=== PATIENT | female | born 1955 | race Caucasian/White ===

== ENCOUNTER 2024-05-13 15:49 | Emergency (ER) | payer OTHER, MEDICARE, SELFPAY ==
--- NOTE | ~2024-05-13 | CT_ITS ---
CT abdomen pelvis w con Ordering provider: Milagros Ortega PA-C History: 69 years Female with . n/v/d, abd bloating . Comparison: None. Technique: CT abdomen and pelvis with IV and without oral contrast. Automated exposure control and it erative reconstruction technique were employed. The dose-length product was 284.08 mGy-cm. 100 mL Omn ipaque 350 was given IV. Findings: VISUALIZED LOWER CHEST: Nodule measuring 4 mm seen in the left lower lobe. 6 months follow-up CT is a dvised. UPPER ABDOMINAL ORGANS: Liver: Normal. Gallbladder: Normal. Spleen: Normal. Stomach/duodenum: Normal. Pancreas: Normal. Adrenals: Normal. Kidneys: Normal. PELVIC ORGANS: The bladder is underfilled. BOWEL AND MESENTERY: Colon: No evidence of diverticulitis.. Normal appendix. Small Bowel: Normal. No obstruction. Peritoneum/mesentery: No free air or free fluid. No mesenteric lymphadenopathy. RETROPERITONEUM: Mild atheromatous disease of the abdominal aorta. Prominent vessels are seen in the sides of the pelvis with prominent ovarian veins suggestive of pelvic congestion syndrome. No retrop eritoneal lymphadenopathy. MUSCULOSKELETAL: Superficial soft tissues: The superficial soft tissues are normal. Bones: Age appropriate degenerative changes of the spine. IMPRESSION: 1. Nodule in the left lung base measuring 4 mm. 6 months follow-up CT is advised. 2. 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 3. No evidence of appendicitis, diverticulitis or intestinal obstruction. Reviewed, dictated and finalized at location A. IMPRESSION: 1. Nodule in the left lung base measuring 4 mm. 6 months follow-up CT is advis ed. 2. Prominent markings in the sides of the pelvis suggestive of pelvic congesti on syndrome. 3. No evidence of appendicitis, diverticulitis or intestinal obstruction.
[2024-05-13 16:14] VITALS: BP 131/77; PULSE 60; RESP 18; TEMP 36.7; O2SAT 100
--- OUTSIDE RECORDS SUMMARY | 2024-05-13 17:38 | XMS_ITS | Encounter Summary ---
Author Organization [facility] Healthcare Address [address] [place] [id number] Care Team Providers Care Insurance Claims Representative Name Role Phone DALTON Olea Jr., Cesar Hahn Primary Care Provide r Reason for Visit * Reason Onset Date Comments Vomiting 05/13/2024 Encounter Details Date Type Department Care Team ([facility] st Contact Info) Description 05/13/2024 Nurse Triage [facility] Medical Group Primary Care [facility] [address] [phone] Cesar Olea Jr., PA [address] [place] [address] Social History Tobacco Use Types Packs/Day Years Used Date Smoking Tobacco: Never Smokeless Tobacco: Never Alcohol Use Standard Drinks/Week Comments Yes 0 (1 standard drink = 0.6 oz pur e alcohol) AUDIT-C Answer Date Recorded Q1: How often do you have a drink containing alc ohol? Never 04/27/2024 Q2: How many drinks containi ng alcohol do you have on a typical day when you are drinking? 1 or 2 04/27/2024 Frequency of Binge Drinking Not on file 04/05 PHQ-2 Answer Date Recorded PHQ-2 Total Score (If total score is 3 or more points, staff should administer the PHQ-9) 0 01/15/2024 Comments No Sex and Gender Information Value Date Recorded Sex Assigned at Not on file Legal Sex Female 7:42 PM LITERACY COORDINATOR Gender Identity Not on file Sexual Orientation Not on file documented as of this encounter Miscellaneous Notes * Telephone Encounter - Cesar Olea Jr., PA - 05/13/2024 3:41 PM CDT Provider note, noted. * Telephone Encounter - Aj Goldman LPN - 05/13/2024 3:17 PM CDT Please review. * Telephone Encounter - Janki Rubio RN - 05/13/2024 3:03 PM CDT Pt reports vomiting x almost 48 hours. Vomiting and diarrhea began Saturday evening about 2 hours after dinner. Vomiting and diarrhea lasted all throughout the night. Pt felt a little bit better yesterday. Vomiting (no diarrhea) returned today and she hasn't been able to keep fluid down. Pt reports feeling lightheaded. She is able to walk around. Denies fever. Advised pt to be seen in person somewhere with capability for IVF (ED or higher acuity UC). Pt's significant other plans to drive her to [facility] at this time. She agrees to call back with any questions or follow up. Routing to Cesar Olea Jr., PA clinical pool as MELITA. Reason for Disposition MODERATE vomiting (e.g., 3 - 5 times/day) and age > 60 years Protocols used: Jmbnyhna-Znhni-NH * Telephone Encounter - Janki Rubio RN - 05/13/2024 2:53 PM CDT Regarding: diarrhea, vomiting ----- Message from Adia Turcios sent at 05/13/2024 2:08 PM CDT ----- Symptom Based Call Chief Complaint(s): diarrhea, vomiting Duration: 24 hrs What type of symptom(s) is the patient experiencing? Non-Emergent. Is this a new or reoccurring symptom(s)? new What have you tried to help your symptom(s)? Ronan Gutierres Dayquil Why was appointment not scheduled? Appointment availability did not meet the patient's need. Additional Comments: none Does message need to be routed? Yes-Action Needed documented in this encounter Plan of Treatment Not on file documented as of this encounter Visit Diagnoses Not on filedocumented in this encounter Care Teams Insurance Claims Representative Relationship Specialty Start Date End Date Cesar Olea Jr., DALTON [address] [place] [id number] PCP - General 06/02/18 documented as of this encounter
--- OUTSIDE RECORDS SUMMARY | 2024-05-13 17:38 | XMS_ITS | Referral Summary ---
Author Organization [address] Address [address] [place] [id number] Care Team Providers Care Speedometer Mechanic Name Role Phone DALTON Olea Jr., Cesar Hahn Primary Care Provide r Encounters Date Type Department Care Team Description 05/13/2024 Nurse Triage [facility] Primary Care [address] [place] [address] [address] [place] [address] Cesar Olea Jr., PA 04/27/2024 10:45 AM BUSINESS MANAGEMENT PROFESSOR Office Visit [facility] Primary [facility] [address] [place] [address] [address] [place] [address] Cesar Olea Jr., PA Hordeolum internum of left lower eyelid (Primary Dx); Primary insomnia; Current mild episode of major depressive disorder without prior episode; Gastroesophageal reflux disease without esophagitis; Acquired hypothyroidism 04/23/2024 9:27 AM BUSINESS MANAGEMENT PROFESSOR - 04/23/2024 11:59 PM BUSINESS MANAGEMENT PROFESSOR Hospital Encounter [facility] Bld[facility] [address] [place] [address] [address] [place], [place] [id number] Screening mammogram, encounter for Discharge Disposition: Discharge to home or self care from Last 3 Months Allergies Active Allergy Reactions Criticality Noted Date Comments Codeine Unknown 03/30/2019 Codeine Sulfate Unknown 06/17/2018 Levofloxacin Unknown 06/17/2018 Sulfa (Sulfonamide Antibiotics) Unknown 06/02 Sulfamethoxazole-Trimethoprim Unknown 2018 Medications biotin 1 mg capsule Rx: Biotin Active cholecalciferol (VITAMIN D-3) 5,000 unit tablet 10 tablets (50,000 Units total) daily Active tryptic soy broth (SOYBEAN CASEIN DIGEST MEDIUM MISC) 250 mg Active multivit with minerals/lutein (MULTIVITAMIN 50 PLUS ORAL) Rx: Multivitamin Ac tive fluticasone propionate (FLONASE) 50 mcg/actuation nasal sprayIndications:S easonal allergies Administer 2 sprays into each nostril daily 16 g 11 05/19/19 21 Active magnesium gluconate 200 mg tabletIndications: hypomagnesemia 1 tablet (200 mg total) Active naproxen (ALEVE) 220 mg tablet Take by mouth 2 (two) times a day with meals Active Skyrizi 150 mg/mL pen injector INJECT 1 PEN UNDER THE SKIN ONCE FOR LOADING DOSE THEN FOLLOW WITH MAINTENANCE DOSING ON WEEK 4 05/17/19 24 Active hydrocortisone 2.5 % ointment APPLY TO RASH ON EYELIDS TWICE DAILY FOR 2 WEEKS. USE NO LONGER THAN 2 WEEKS. 03/15/19 24 Active clobetasoL (TEMOVATE) 0.05 % ointment 05/06/19 24 Active ofloxacin (FLOXIN) 0.3 % otic solutionIndication s:Otitis Externa Administer 5 drops into each ear daily 5 mL 1 05/23/19 24 Active cetirizine (ZyrTEC) 10 mg tablet Take 1 tablet (10 mg total) by mouth daily 90 tablet 1 01/22/20 24 Active Maxitrol 3.5 mg/g-10,000 unit/g-0.1 % ointment Apply 1 Application to both eyes daily Will be starting 01/2601/06/20 24 Active glucosamine-chondr oitin 250-200 mg tablet Take 2 tablets by mouth daily Active levothyroxine (SYNTHROID) 25 mcg tabletIndications: Acquired hypothyroidism Take 1 tablet (25 mcg total) by mouth daily 90 tablet 1 01/24/20 24 Active temazepam (RESTORIL) 30 mg capsuleIndications :Insomnia Take 1 capsule (30 mg total) by mouth nightly as needed for sleep 90 capsule 1 02/24/[address] (CYMBALTA) 30 mg capsuleIndications :Anxiety with Depression Take 1 capsule (30 mg total) by mouth 2 (two) times a day 180 capsule 1 03/02/20 24 025 Active erythromycin (ILOTYCIN) ophthalmic ointmentIndication s:Hordeolum internum of left lower eyelid Apply to left eye 4 (four) times a day for 7 days 3.5 g 04/27/19 25 025 Active Problems Problem Noted Date Diagnosed Date Allergic rhinitis 01/15/2024 Atopic dermatitis 01/15/2024 Overview (01/15/2024): Pt to apply cream to affected areas tid until clear and to moisturize skin liberally. Cervical neoplasm 01/15/2024 Overview (01/15/2024): Will refer to gyne for further eval of vascular lesion on cervix. Polyp of cervix 01/15/2024 Cervicitis 01/15/2024 Costochondritis 01/15/2024 Gynecological disease 01/15/2024 Overview (01/15/2024): Pt scheduled for appt for colposcopy for closer look at dilated blood vessel on cervix. Hypertension 01/15/2024 Overview (01/15/2024): well controlled with current meds, continue as prescribed. Discussed lifestyle changes to lower BP. Follow up in 6-12 months or sooner if needed. Pain in thoracic spine 01/15/2024 Overview (01/15/2024): Now resolved after working out. Suspect musculoskeletal, pt agrees. f/u prn if pain returns/persists, other sx of concern. Pins and needles sensation 01/15/2024 Primary insomnia 06/06/2023 Assessment & Plan (06/06/2023 6:49 AM CDT): Currently taking restoril 30 mg Stable on medication No noted new symptoms Getting 6-7 hrs per night Feels rested Gastroesophageal reflux disease without esophagi tis 12/25/2019 Anxiety state 10/15/2019 Depression 01/28/2018 Assessment & Plan (06/06/2023 6:50 AM CDT): Symptoms currently stable Pt is on Cymbalta 30 mg daily No problems on the med Overall feels good No changes in dosing at this time Arthritis of foot 01/21/2018 Menopause 03/15/2016 Vitamin D deficiency 03/15/2016 Pain in right foot 06/21/2015 Plantar fasciitis 06/21/2015 Resolved Problems Problem Noted Date Diagnosed Date Resolved Date Benign essential hypertension 03/15/2016 12/26/2022 Hypothyroidism 03/15/2016 03/08/2021 Encounter for therapeutic drug monitoring 03/15/2016 03/08/2021 Immunizations Immunization Administration Dates Next Due COVID-19 MRNA (MODERNA) .5 M L (50 MCG) VACCINE (12 YEARS AND UP) 12/18/2022 Hep A, Adult 12/28/1998,05/04/1998 Hep B Vaccine 12/28/1998,06/10/1998,05/04/1998 IPV 05/11/1998 Influenza, Quad, Adjuvantate d, Intramuscular 12/18/2022 Influenza, Quadrivalent, Maria Eugenia l Culture-based MDCK, Preservative Free, Antibiotic Free, Intramuscular 12/08/2019 Influenza, Quadrivalent, Spl it, Intramuscular 12/29/2018 Influenza, Quadrivalent, Spl it, Preservative Free, Intramuscular 01/30/2022,12/21/2020,12/29/2018,12/20,12/19/2017,12/27/2015 Influenza, Trivalent, High D ose, Split, Preservative Free, Intramuscular 12/31/2023 Influenza, Trivalent, IM (MDV) 12/23/2016 Influenza, Trivalent, Preser vative Free, Intramuscular 12/14/2014,12/04/2013 Influenza, Unspecified 12/30/2020,12/08/2019 Lime&Tonic (J&J) SARS-CoV-2 Vaccination 05/09/2020 Pneumococcal Conjugate PCV 13 10/21/2020 Pneumococcal Conjugate Pcv20 02/13/2022 Td, adsorbed 05/04/1998 Tdap 10/28/2020,03/18/2015 Typhoid H-P SQ/ID 05/11/1998 ZOSTER LIVE 11/09/2018,03/18/2015 ZOSTER Recombinant 11/09/2018 Social History Tobacco Use Types Packs/Day Years [...] on file Legal Sex Female 7:42 PM BUSINESS MANAGEMENT PROFESSOR Gender Identity Not on file Sexual Orientation Not on file Last Filed Vital Signs Vital Sign Reading Time Taken Comments Blood Pressure 120/80 04/27/2024 10:33 AM BUSINESS MANAGEMENT PROFESSOR Pulse 53 04/27/2024 10:33 AM BUSINESS MANAGEMENT PROFESSOR Temperature 35.9 C (96.7 F) 04/27/2024 10:33 AM BUSINESS MANAGEMENT PROFESSOR Respiratory Rate 16 04/27/2024 10:33 AM BUSINESS MANAGEMENT PROFESSOR Oxygen Saturation 96% 04/27/2024 10:33 AM BUSINESS MANAGEMENT PROFESSOR Inhaled Oxygen Concentration - - Weight 63.5 kg (140 lb) 04/27/2024 10:33 AM BUSINESS MANAGEMENT PROFESSOR Height 157.5 cm (5' 2 ) 04/27/2024 10:33 AM BUSINESS MANAGEMENT PROFESSOR Body Mass Index 25.61 04/27/2024 10:33 AM BUSINESS MANAGEMENT PROFESSOR Plan of Treatment Not on file Procedures Procedure Name Priority Date/Time Associated Diagnosis Comments SCREENING MAMMOGRAM BILATERAL W COLE Schedule Routine, Read Routine (OP Routine) 04/23/2024 9:40 AM BUSINESS MANAGEMENT PROFESSOR Screening mammogram, encounter for HEPATITIS C ANTIBODY Routine 01/17/2024 12:06 PM BUSINESS MANAGEMENT PROFESSOR Medicare annual wellness visit, subsequent Encounter for hepatitis C screening test for low risk patient STOOL DNA COLOGUARD Routine 08/20/2022 10:00 AM CDT Screening for colon cancer DEXA AXIAL SKELETON BONE DENSITY 1 OR MORE SITES Schedule Routine, Read Routine (OP Routine) 06/14/2022 10:18 AM CDT Age-related osteoporosis without current pathological fracture COLONOSCOPY Routine 06/23/2008 from Last 3 Months or Most Recently Relevant to Health Maintenance Results * Screening Mammogram Bilateral W Cole (04/23/2024 9:40 AM BUSINESS MANAGEMENT PROFESSOR) Anatomical Region Laterality Modality Breast Bilateral Mammography Impressions 04/23/2024 9:49 AM BUSINESS MANAGEMENT PROFESSOR BI-RADS ATLAS category (overall): 1 - Negative There is no mammographic evidence of malignancy. A 1 year screening mammogram is recommended. The patient has been or will be contacted. We recommend annual screening mammography for women at average risk of breast cancer beginning at age 40, based on guidelines of the [employer] (ACR Practice Parameter for the Performance of Screening and Diagnostic Mammography) and [employer]. For women with and elevated risk of breast cancer, please refer to the ACR Practice Parameter for specific screening recommendations. The patient will be entered into a reminder system with a target due date of 1 year for her next screening exam. Narrative 04/23/2024 9:49 AM BUSINESS MANAGEMENT PROFESSOR Screening Mammogram Bilateral W Cole: 04/23/24 The study was acquired using full field digital technology and interpreted from soft copy. 2D digital mammographic views, as well as 3D digital tomosynthesis were performed in the CC and MLO projections. CLINICAL: Screening mammogram, encounter for. No relevant medical history has been documented for this patient. No known family history of breast cancer. COMPARISONS: 03/12/2023 Screening Mammogram Bilateral W Cole 03/07/2021 Screening Mammogram Bilateral W Cole BREAST TISSUE: The breasts are heterogeneously dense, which may obscure small masses. FINDINGS: No suspicious masses, suspicious calcifications, or other suspicious findings are seen within either breast. There has been no suspicious change. us Self Screening Mammogram IMG MAMMO PROCEDURES Fi nal Result * Hepatitis C antibody Blood (01/17/2024 12:06 PM BUSINESS MANAGEMENT PROFESSOR) Hep C Ab Nonreactive Nonreactive Comment: Antibodies to HCV not detected. Does NOT exclude the possibility of recent exposure to HCV. Current interpretive data was last revised on 21 Interpretive Data Nonreactive: Antibodies to HCV not detected. Does NOT exclude the possibility of recent exposure to HCV. Equivocal: Equivocal for HCV antibodies. Supplemental molecular testing will be automatically performed to determine infection status in accordance with current CDC screening recommendations. Reactive: Positive for HCV antibodies. This may represent current or past HCV infection. Supplemental molecular testing will be automatically performed to determine current infection status in accordance with current CDC screening recommendations. Interpretive data was last revised on 2019. Blood 01/17/2024 12:0 6 PM BUSINESS MANAGEMENT PROFESSOR 01/17/2024 4:30 PM BUSINESS MANAGEMENT PROFESSOR us DALTON Ivy Jr. LAB MICROBIOLOGY - A Green Night's SleepUT ORDERABLES Final Result BETTINA [address] [facility] Department [place] [address] * Stool DNA - Cologuard (08/20/2022 10:00 AM CDT) Stool DNA - Cologuard Negative Negative [employer] (CLIA #:[id number]) Comment: NEGATIVE TEST RESULT. A negative Cologuard result indicates a low likelihood that a colorectal cancer (CRC) or advanced adenoma (adenomatous polyps with more advanced pre-malignant features) is present. The chance that a person with a negative Cologuard test has a colorectal cancer is less than 1 in 1500 (negative predictive value >99.9%) or has an advanced adenoma is less than 5.3% (negative predictive value 94.7%). These data are based on a prospective cross-sectional study of 10,000 individuals at average risk for colorectal cancer who were screened with both Cologuard and colonoscopy. (Brian Aguilar al, N Engl J Med 2014;370(14):0325-8439) The normal value (reference range) for this assay is negative. COLOGUARD RE-SCREENING RECOMMENDATION: Periodic colorectal cancer screening is an important part of preventive healthcare for asymptomatic individuals at average risk for colorectal cancer. Following a negative Cologuard result, the [employer] [employer] and U.S. Multi-Society Task Force screening guidelines recommend a Cologuard re-screening interval of 3 years. References: [employer] [employer] Guideline for Colorectal Cancer Screening: https://www.cancer.org/cancer/csiie-jkoieg-gkuzlq/femqjkipz-kdeyseqpy-fphlvcy/ac s-rec ommendations.html.; Travis DK, Meri CR, Geno TurciosK, Colorectal Cancer Screening: Recommendations for Physicians and Patients from the U.S. Multi-Society Task Force on Colorectal Cancer Screening , Am J Gastroenterology 2017; 112:6395-7751. TEST DESCRIPTION: Composite algorithmic analysis of stool DNA-biomarkers with hemoglobin immunoassay. Quantitative values of individual biomarkers are not reportable and are not associated with individual biomarker result reference ranges. Cologuard is intended for colorectal cancer screening of adults of either sex, 45 years or older, who are at average-risk for colorectal cancer (CRC). Cologuard has been approved for use by the U.S. FDA. The performance of Cologuard was established in a cross sectional study of average-risk adults aged 50-84. Cologuard performance in patients ages 45 to 49 years was estimated by sub-group analysis of near-age groups. Colonoscopies performed for a positive result may find as the most clinically significant lesion: colorectal cancer [4.0%], advanced adenoma (including sessile serrated polyps greater than or equal to 1cm diameter) [20%] or non- advanced adenoma [31%]; or no colorectal neoplasia [45%]. These estimates are derived from a prospective cross-sectional screening study of 10,000 individuals at average risk for colorectal cancer who were screened with both Cologuard and colonoscopy. (Brian Aguilar al, N Engl J Med 2014;370(14):5485-9177.) Cologuard may produce a false negative or false positive result (no colorectal cancer or precancerous polyp present at colonoscopy follow up). A negative Cologuard test result does not guarantee the absence of CRC or advanced adenoma (pre-cancer). The current Cologuard screening interval is every 3 years. ([employer] [employer] and U.S. Multi-Society Task Force). Cologuard performance data in a 10,000 patient pivotal study using colonoscopy as the reference method can be accessed at the following location: www.[employer]ioMind.com/results. Additional description of the Cologuard test process, warnings and precautions can be found at www.[email or web address].com. Stool 08/20/2022 10:0 0 AM CDT 08/21/2022 7:19 PM CDT us DALTON Ivy Jr. LAB BODY FLUIDS AND S TOOLS ORDERABLES Final Result [facility] (CLIA #:[id number]) [place] [address] * Dexa Axial Skeleton Bone Density 1 Or 2 Site (06/14/2022 10:18 AM CDT) Anatomical Region Laterality Modality Body N/A Mammography 06/15/2022 6:50 PM CDT Narrative 06/15/2022 6:59 PM CDT EXAM DESCRIPTION: DEXA AXIAL SKELETON BONE DENSITY 1 OR MORE SITES REASON FOR STUDY: 67 y/o year old F with given history of screening. 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 LEFT HIP: Total BMD is 0.996 g/cm2 T-score is 0.4 This is decreased in comparison to prior exam which is not statistically significant. Femoral neck BMD is 0.742 g/cm2 T-score is -1.0 FRAX: FRAX not reported due to T-scores of hip, femoral neck and/or spine being at or above -1.0 (Normal). IMPRESSION: Normal bone mass. REFERENCE: Bone mineral density: Normal (T-score above or = -1.0) Low bone mass (T-score between -1.0 and -2.5) replaces the previously used term osteopenia Osteoporosis (T-score = or below -2.5) Medical evaluation for secondary causes of low bone mineral density may be appropriate. FRAX is a World Health Organization validated fracture risk assessment tool that calculates a person's 10 year probability of a major osteoporosis related fracture and hip fracture. According to the National Osteoporosis Foundation guidelines, postmenopausal women and men age 50 or older with low bone mass and a 10 year probability of a major osteoporosis related fracture = or greater than 20% or a 10 year probability of a hip fracture = or greater than 3% should be considered for treatment. For further information, including treatment recommendations, please refer to the 2013 ISCD Official Positions (http://www.iscd.org) and the NOF's Clinician's Guide to Prevention and Treatment of Osteoporosis (http://www.nof.org/professionals/clinical-guidelines) THIS IS AN ELECTRONICALLY VERIFIED FINAL REPORT 06/15/2022 6:59 PM - Electronically signed by Temo Tsang M.D. MF: CHARIS Report ID: [id number] Reading Location: [address] Note Temo Tsang MD - 06/15/2022 EXAM DESCRIPTION: DEXA AXIAL SKELETON BONE DENSITY 1 OR MORE SITES REASON FOR STUDY: 67 y/o year old F with given history of screening. 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 Horizon A (S/N [id number]) CLINICAL INFORMATION: Current height: 62 inches Maximum height: 62 inches Weight: 134 pounds Risk factors: Postmenopausal COMPARISON: 04/28/2019 FINDINGS: AP LUMBAR SPINE L1-L4: Total BMD is 1.043 g/cm2 T-score is 0.0 This is unchanged in comparison to prior exam which is not statistically significant. LEFT HIP: Total BMD is 0.996 g/cm2 T-score is 0.4 This is decreased in comparison to prior exam which is not statistically significant. Femoral neck BMD is 0.742 g/cm2 T-score is -1.0 FRAX: FRAX not reported due to T-scores of hip, femoral neck and/or spine beingat or above -1.0 (Normal). IMPRESSION: Normal bone mass. REFERENCE: Bone mineral density: Normal (T-score above or = -1.0) Low bone mass (T-score between -1.0 and -2.5) replaces thepreviously used term osteopenia Osteoporosis (T-score = or below -2.5) Medical evaluation for secondary causes of low bone mineral density may be appropriate. FRAX is a World Health Organization validated fracture risk assessmenttool that calculates a person's 10 year probability of a major osteoporosisrelated fracture and hip fracture. According to the National OsteoporosisFoundation guidelines, postmenopausal women and men age 50 or older with low bonemass and a 10 year probability of a major osteoporosis related fracture = or greater than 20% or a 10 year probability of a hip fracture = or greaterthan 3% should be considered for treatment. For further information, including treatment recommendations, please referto the 2013 ISCD Official Positions (http://www.iscd.org) and the NOF's Clinician's Guide to Prevention and Treatment of Osteoporosis (http://www.nof.org/professionals/clinical-guidelines) THIS IS AN ELECTRONICALLY VERIFIED FINAL REPORT 06/15/2022 6:59 PM - Electronically signed by Temo Tsang M.D. MF: CHARIS Report ID: [id number] Reading Location: [place] [address] Cesar Olea Jr., DALTON IMG DXA PROCEDURES Fi nal Result * Colonoscopy (06/23/2008) Anatomical Region Laterality Modality Other Historical Provider ENDOSCOPY PROCEDURES Brissa l Result from Last 3 Months or Most Recently Relevant to Health Maintenance Insurance [employer] MEDICARE [employer] [facility] CHOICE MEDICARE PPO MEDICARE [facility] Care Teams Speedometer Mechanic Relationship Specialty [place] [address] [place] [id number] PCP - General 06/02/18
--- OUTSIDE RECORDS SUMMARY | 2024-05-13 17:38 | XMS_ITS | Clinical Summary ---
Author Organization [address] Address [address] [place] [phone] Care Team Providers Care Cash Posting Specialist Name Role Phone DALTON Olea Jr., Cesar Hahn Primary Care Provide r Allergies Active Allergy Reactions Criticality Noted Date [...] Encounter for therapeutic drug monitoring 03/15/2016 03/08/2021 Encounters Date Type Department Care Team Description 05/13/2024 Nurse Triage [facility] [address] [place] [phone] Cesar Olea Jr., PA 04/27/2024 10:45 AM ROUNDHOUSE SUPERVISOR Office Visit [facility] [address] [place] [phone] Cesar Olea Jr., PA Hordeolum internum of left lower eyelid (Primary Dx); Primary insomnia; Current mild episode of major depressive disorder without prior episode; Gastroesophageal reflux disease without esophagitis; Acquired hypothyroidism 04/23/2024 9:27 AM ROUNDHOUSE SUPERVISOR - 04/23/2024 11:59 PM ROUNDHOUSE SUPERVISOR Hospital Encounter [facility] [address] [place] [id number] Screening mammogram, encounter for Discharge Disposition: Discharge to home or self care from Last 3 Months Immunizations Immunization Administration Dates Next Due COVID-19 [...] vative Free, Intramuscular 12/14/2014,12/04/2013 Influenza, Unspecified 12/30/2020,12/08/2019 [employer] SARS-CoV-2 Vaccination 05/09/2020 Pneumococcal Conjugate PCV 13 10/21/2020 Pneumococcal Conjugate Pcv20 02/13/2022 Td, adsorbed 05/04/1998 Tdap 10/28/2020,03/18/2015 Typhoid H-P SQ/ID 05/11/1998 ZOSTER LIVE 11/09/2018,03/18/2015 [employer] Recombinant 11/09/2018 Medical History Medical History Date Comments Depression Family History Medical History Relation Name Comments No Known Problems Father No Known Problems Mother Relation Name Status Comments Father Mother Social History Tobacco Use Types Packs/Day Years [...] on file Legal Sex Female 7:42 PM ROUNDHOUSE SUPERVISOR Gender Identity Not on file Sexual Orientation Not on file Obstetrics History Para Term AB IAB SAB Ectopic Multiple Livin g Live Births 2 Date Outcome GA Total Labor Labor/2nd/3rd Weight Sex Type Anes PTL Natasha A1 A5 Name Clin Last Filed Vital Signs Vital Sign Reading Time Taken Comments Blood Pressure 120/80 04/27/2024 10:33 AM ROUNDHOUSE SUPERVISOR Pulse 53 04/27/2024 10:33 AM ROUNDHOUSE SUPERVISOR Temperature 35.9 C (96.7 F) 04/27/2024 10:33 AM ROUNDHOUSE SUPERVISOR Respiratory Rate 16 04/27/2024 10:33 AM ROUNDHOUSE SUPERVISOR Oxygen Saturation 96% 04/27/2024 10:33 AM ROUNDHOUSE SUPERVISOR Inhaled Oxygen Concentration - - Weight 63.5 kg (140 lb) 04/27/2024 10:33 AM ROUNDHOUSE SUPERVISOR Height 157.5 cm (5' 2 ) 04/27/2024 10:33 AM ROUNDHOUSE SUPERVISOR Body Mass Index 25.61 04/27/2024 10:33 AM ROUNDHOUSE SUPERVISOR Plan of Treatment Health Maintenance Due Date Last Done Comments Colon Cancer Screening-Colonoscopy 06/23/2018 06/23/2008 Zoster Vaccine (3 of 3) 01/04/2019 11/10/19, 11/09/2018, 03/18/2015 Osteoporosis Screening-Bone Density Scan 06/14/2024 06/14/2022, 04/28/2019 Covid-19 Vaccine (2023- 5 season) 2024 12/31/2023, 12/18/2022, 06/19/2021, Additional history exists Depression Screening 01/14/2025 01/15/2024, 05/23/2023, 03/14/2023, Additional history exists Fall Risk Assessment 01/14/2025 01/15/2024, 12/26/2022, 08/28/2022, Additional history exists Well Visit 65+ 01/14/2025 01/15/2024, 12/03, 12/26/2022, Additional history exists Breast Cancer Screening-Mammogram 04/23/2025 04/23/2024, 03/12/2023, 03/07/2021, Additional history exists DTaP/Tdap/Td Vaccine (3 - Td or Tdap) 10/28/2030 10/28/2020, 03/18/2015, 05/04/1998 Hepatitis B Screening Completed 12/28/1998 , 06/10/1998, 05/04/1998 Colon Cancer Screening-CT Colonography Discontinued 06/23/2008 Colon Cancer Screening-Sigmoidoscopy Discontinued 06/23/2008 Pneumococcal vaccine 65+ Completed 02/13/2022, 10/03 Colon Cancer Screening-DNA Stool Discontinued 08/20/2022, 08/20/2022, 08/19/2022, Additional history exists Colon Cancer Screening-FIT Discontinued 08/20, 08/20/2022, 08/19/2022, Additional history exists Influenza Vaccine Completed 12/31/2023, , 01/30/2022, Additional history exists Hepatitis C Screening Completed 01/17/2024, 022 Procedures Procedure Name Priority Date/Time Associated Diagnosis Comments SCREENING MAMMOGRAM BILATERAL W COLE Schedule Routine, Read Routine (OP Routine) 04/23/2024 9:40 AM ROUNDHOUSE SUPERVISOR Screening mammogram, encounter for HEPATITIS C ANTIBODY Routine 01/17/2024 12:06 PM ROUNDHOUSE SUPERVISOR Medicare annual wellness visit, subsequent Encounter for [...] Mammogram Bilateral W Cole (04/23/2024 9:40 AM ROUNDHOUSE SUPERVISOR) Anatomical Region Laterality Modality Breast Bilateral Mammography Impressions 04/23/2024 9:49 AM ROUNDHOUSE SUPERVISOR BI-RADS ATLAS category (overall): 1 - Negative There is no mammographic evidence of malignancy. A 1 year screening mammogram is recommended. The patient has been or will be contacted. We recommend annual screening mammography for women at average risk of breast cancer beginning at age 40, based on guidelines of the [employer] (ACR Practice Parameter for the Performance of Screening and Diagnostic Mammography) and [employer]. For women with and elevated risk of breast cancer, please refer to the ACR Practice Parameter for specific screening recommendations. The patient will be entered into a reminder system with a target due date of 1 year for her next screening exam. Narrative 04/23/2024 9:49 AM ROUNDHOUSE SUPERVISOR Screening Mammogram Bilateral W Cole: 04/23/24 The [...] Hepatitis C antibody Blood (01/17/2024 12:06 PM ROUNDHOUSE SUPERVISOR) Hep C Ab Nonreactive Nonreactive Comment: Antibodies [...] on 2019. Blood 01/17/2024 12:0 6 PM ROUNDHOUSE SUPERVISOR 01/17/2024 4:30 PM ROUNDHOUSE SUPERVISOR us DALTON Ivy Jr. LAB MICROBIOLOGY - [id number] ORDERABLES Final Result [facility] [address] [facility] Department [place] [address] * Stool DNA - Cologuard (08/20/2022 10:00 AM CDT) Stool DNA - Cologuard Negative Negative [employer] (CLIA #:[id number]) Comment: NEGATIVE TEST RESULT. A negative Cologuard [...] (Brian Aguilar al, N Engl J Med 2014;370(14):2908-3597) The normal value (reference range) for this assay is negative. COLOGUARD RE-SCREENING RECOMMENDATION: Periodic colorectal cancer screening is an important part of preventive healthcare for asymptomatic individuals at average risk for colorectal cancer. Following a negative Cologuard result, the [place] [employer] and U.S. Multi-Society Task Force screening guidelines recommend a Cologuard re-screening interval of 3 years. References: [place] [employer] Guideline for Colorectal Cancer Screening: https://www.cancer.org/cancer/vsjkg-zermns-fqfqqe/bcocrxuzv-tyxxujoir-hkdjsss/ac s-rec ommendations.html.; Travis DK, Meri NARVAEZ, Geno ELLISON, Colorectal Cancer Screening: Recommendations for Physicians and Patients from the U.S. Multi-Society Task Force on Colorectal Cancer Screening , Am J Gastroenterology 2017; 112:5166-6063. TEST DESCRIPTION: Composite algorithmic analysis of stool [...] (Brian Aguilar al, N Engl J Med 2014;370(14):9698-3526.) Cologuard may produce a false negative or false positive result (no colorectal cancer or precancerous polyp present at colonoscopy follow up). A negative Cologuard test result does not guarantee the absence of CRC or advanced adenoma (pre-cancer). The current Cologuard screening interval is every 3 years. ([place] [employer] and U.S. Multi-Society Task Force). Cologuard performance data in a 10,000 patient pivotal study using colonoscopy as the reference method can be accessed at the following location: www.exactlabs.com/results. Additional description of the Cologuard test process, warnings and precautions can be found at www.cologuard.com. Stool 08/20/2022 10:0 0 AM CDT 08/21/2022 7:19 PM CDT us DALTON Ivy Jr. LAB BODY FLUIDS AND S TOOLS ORDERABLES Final Result [employer] (CLIA #:[id number]) [place] [address] * Dexa Axial Skeleton Bone Density 1 Or 2 Site (06/14/2022 10:18 AM CDT) Anatomical Region Laterality Modality Body N/A Mammography 06/15/2022 6:50 PM CDT Narrative 06/15/2022 6:59 PM CDT EXAM DESCRIPTION: DEXA AXIAL SKELETON BONE DENSITY 1 OR MORE SITES REASON FOR STUDY: 67 y/o year old F with given history of screening. Postmenopausal Business Travel Consultant/Model: Refinder by [employer] A (S/N [id number]) CLINICAL INFORMATION: Current height: 62 inches Maximum [...] Temo Tsang M.D. MF: CHARIS Report ID: [id number] Reading Location: [place] [address] Procedure Note Temo Tsang MD - 06/15/2022 EXAM DESCRIPTION: DEXA AXIAL SKELETON BONE DENSITY 1 OR MORE SITES REASON FOR STUDY: 67 y/o year old F with given history of screening. Postmenopausal Business Travel Consultant/Model: [employer] A (S/N [id number]) CLINICAL INFORMATION: Current height: 62 inches Maximum [...] Temo Tsang M.D. MF: CHARIS Report ID: [id number] Reading Location: [place] [address] Cesar Olea Jr., DALTON IMG DXA PROCEDURES Fi nal Result * Colonoscopy (06/23/2008) Anatomical Region Laterality Modality Other Historical Provider ENDOSCOPY PROCEDURES Brissa l Result from Last 3 Months or Most Recently Relevant to Health Maintenance Insurance [employer] MEDICARE [facility] [employer] CHOICE MEDICARE PPO MEDICARE [employer] Care Teams Cash Posting Specialist Relationship Specialty Start Date End Date Cesar Olea Jr., PA [address] [place] [id number] PCP - General 06/02/18
--- OUTSIDE RECORDS SUMMARY | 2024-05-13 17:38 | XMS_ITS | Continuity of Care Document ---
Author Name [facility] Organization [facility] Care Team Providers Care Fulfillment Specialist Name Role Phone DOD-CA Unavailable Unavailable Problems Combined list of problems from Department of Defense and Veterans Affairs facilities. It does not include entries that were removed or entered in error. Problem Status Onset Date Problem Type Date of Resolution Comments Source Oral Contraceptives Inactive Condition risks, side effects discussed; pt can start today; last intercourse prior to 03/10 menses DoD sudden redness of the skin (flushing) Inactive Condition DoD Gynecologic Service Prescrip Of Contracept Agent - Repeat Rx Active Condition R/B/SEs reviewed, especially elevated risk of thrombosis/andi t - pt expressed understanding, has discussed this in detail both with PCM Dr Avila and with Storage Solutions Architect. Desires continuance of OCPs because of hot flashes and also not yet through menopause and n DoD midback pain Active Condition Now res olved after working out. Suspect musculoskeleta l, pt agrees. f/u prn if pain returns/persis ts, other sx of concern. DoD Gynecologic Services Contraceptive Management Active Condition DoD scabies Inactive Condition Pt to use medication as Rx, to wash bedding at home in hot water and to follow-up if not better in 3 days. DoD cervicitis Active Condition DoD Colposcopy Inactive Condition no hx abn paps; hx cervical vascular prominance DoD inflammation of cervix, vagina, and vulva Active Condition Pt scheduled for appt for colposcopy for closer look at dilated blood vessel on cervix. DoD Pelvic Exam (Internal) Active Condition DoD visit for: screening exam for malignant neoplasm cervix Inactive Condition DoD cervical neoplasm Active Condition Wi ll refer to gyne for further eval of vascular lesion on cervix. DoD menopause Active Condition Advised pt that she should no longer be taking hormonal therapy - will start pt on Prozac 10mg po qd - and will titrate as needed - pt also wants to try to start taking Black Cohash again. Pt to ask gyne about potential control options if she aguilar DoD routine history and physical adult (18 - 64 yrs) Inactive Condition Pt wants to think about a colonoscopy and will call back for a referral for a screening colonscopy. DoD visit for: issue repeat prescription Inactive Condition DoD hypertension systemic Active Condition well controlled with current meds, continue as prescribed. Discussed lifestyle changes to lower BP. Follow up in 6-12 months or sooner if needed. DoD menopause symptomatic Active Condition reordered demulin and ordered hormone labs. Mammogram ordered. OK to skip er pap smear this year. DoD Blood Pressure Isolated Elevated Inactive Condition monitor b/ p at home and avoid execcisve salt, caffiene and etoh. Continue exercise and f/u in 1-2 months with reults and for repeat eval and labs. DoD visit for: issue repeat prescription for medication Inactive Condition DoD acute bronchitis Inactive Condition DoD costochondritis (Tietze's syndrome) Active Condition DoD upper respiratory infection Inactive Condition pt to take medication as Rx with plenty of fluids and to wash hands regularly, pt to follow-up if not edgardo in 7-10 days. DoD atopic dermatitis Active Condition Pt to apply cream to affected areas tid until clear and to moisturize skin liberally. DoD cervical polyps Active Condition DoD Preventive Medicine Established Patient Checkup Adult 40-64 Years Inactive Condition DoD allergic rhinitis Active Condition DoD tingling (paresthesia) Active Condition DoD Medications Combined list of outpatient medications from Department of Defense and Veterans Affairs facilities.Medications provided include 1) outpatient medications from the last 15 months, and 2) patient-reported medications. Medication Details Route Status Patient Instructions Prescription Expires Prescription Number Last Dispense Date Ordering Provider Order Date Order Qty Source CETIRIZINE (U/D) 10 MG ORAL TAB May cause drowsine ss.Obtai n advice for OTCs. Active 06/24/2024 [id number] 4 2023 90 [employer] [place] [facility] ([facility]) cetirizine 10 mg tablet 10 mg, Oral, Daily, # 90 EA, 1 total refill(s ), Hard Stop Oral (given by mouth) Ordered 01/21/2025 5 2024 90.0 Ambulat ory Pharmac y cetirizine 10 mg tablet 10 mg, Oral, Daily, # 90 EA, 1 total refill(s ), Hard Stop Oral (given by mouth) Complet ed 12/18/2023 4 2023 90.0 Ambulat ory Pharmac y cetirizine 10 mg tablet 10 mg, Oral, Daily, # 90 EA, 1 total refill(s ), Hard Stop Oral (given by mouth) Discont inued 01/23/2024 4 2023 90.0 Ambulat ory Pharmac y DULoxetine DR 30 mg capsule 30 mg, Oral, BID, # 180 EA, 1 total refill(s ), Hard Stop Oral (given by mouth) Complet ed 08/14/2023 3 2023 180.0 Ambulat ory Pharmac y DULoxetine DR 30 mg capsule 30 mg, Oral, BID, # 180 EA, 1 total refill(s ), Hard Stop Oral (given by mouth) Ordered 06/24/2024 4 2023 180.0 Ambulat ory Pharmac y temazepam 30 mg capsule 30 mg, Oral, # 90 EA, 1 total refill(s ), Hard Stop Oral (given by mouth) Ordered 08/22/2024 4 2023 90.0 Ambulat ory Pharmac y temazepam 30 mg capsule See Instruct ions, # 90 EA, 1 total refill(s ), Hard Stop Complet ed 06/19/2023 4 2023 90.0 Ambulat ory Pharmac y temazepam 30 mg capsule See Instruct ions, # 90 EA, 1 total refill(s ), Acute Complet ed 12/22/2022 3 2022 90.0 Ambulat ory Pharmac y Allergies, Adverse Reactions, Alerts Combined list of allergies from Department of Defense and Veterans Affairs facilities. It does not include entries that were removed or entered in error. Substance Category Reaction Severity Reaction type Status Date Reported Comments Source CODEINE Drug allergy (disorder) Unknown active [address] [place] [address] Group [place] [facility] ([facility]) codeine Propensity to adverse reactions to drug Unknown Active 4 Unknown Organizat ion erythromycin Propensity to adverse reactions to drug Unknown Active 4 Unknown Organizat ion ERYTHROMYCIN (ERYTHROMYCIN BASE) Drug allergy (disorder) Unknown active [address] [place] [address] [place] ([facility]) OTHER Drug allergy (disorder) Unknown active 4 [facility] SEPTRA (SULFAMETHOXA ZOLE/TRIMETHO PRIM) Drug allergy (disorder) Unknown active [address] [place] [address] [facility] [employer] sulfa drugs Propensity to adverse reactions to drug Unknown Active 4 Unknown Organizat ion SULFA-DRUGS Drug allergy (disorder) Unknown active [address] [place] [address] [facility]) sulfamethoxaz ole-trimethop rim Propensity to adverse reactions to drug Unknown Active 4 ITCHING OVER ENTIRE BODY Unknown Organizat ion Immunizations Combined list of available immunizations from the Department of Defense and Veterans Affairs facilities. 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 Status Comments Source COVID-19, mRNA, LNP-S, PF, 30 mcg/0.3 mL dose, hipolito-sucrose 2021 [facility] Not Given COVID-19, mRNA, LNP-S, PF, 30 mcg/0.3 mL dose, hipolito-sucr ose DoD influenza, injectable, quadrivalent- pf 2020 zSarah t Arm [id number] 150 [facility] influenza , injectabl e, quadrival ent-pf 12/21/20 Given Ambulat ory Pharmac y Influenza, injectable, quadrivalent, preservative free 1 2020 Unknown, Provider [id number] 150 Smithine (SKB) complet ed Influenza , injectabl e, quadrival ent, preservat cal free DoD Tdap 2020 ALUL, () Not Given Tdap DoD influenza virus vaccine, inactivated 2019 88 Seqirus complet ed influenza virus vaccine, inactivat ed 12/08/19 Given Ambulat ory Pharmac y zoster recombinant 2019 ALUL, () Not Given zoster recombina nt DoD Influenza, injectable, MDCK, preservative free, quadrivalent 2019 ALUL, () Not Given Influenza , injectabl e, MDCK, preservat cal free, quadrival ent DoD zoster recombinant 2018 PEGGY, () Not Given zoster recombina nt DoD influenza, injectable, quadrivalent- pf 2018 150 Seqirus complet ed influenza , injectabl e, quadrival ent-pf 12/29/18 Given Ambulat ory Pharmac y zoster recombinant 2018 PEGGY, () Not Given zoster recombina nt DoD influenza, injectable, quadrivalent- pf 2017 150 Seqirus complet ed influenza , injectabl e, quadrival ent-pf 12/20/17 Given Ambulat ory Pharmac y Influenza, seasonal, injectable 2016 ALUL, () Not Given Influenza , seasonal, injectabl e DoD influenza, injectable, quadrivalent- pf 2015 zzLef t Arm [id number] 150 GlaxoSmithKli ne complet ed influenza , injectabl e, quadrival ent-pf 12/27/15 Given Ambulat ory Pharmac y Influenza, injectable, quadrivalent, preservative free 1 2015 Unknown, Provider [id number] [facility] Influenza , injectabl e, quadrival ent, preservat cal free DoD zoster vaccine live 2015 zzRig ht Arm [id number] [employer] complet ed zoster vaccine live 03/18/15 Given Ambulat ory Pharmac y tetanus, diphtheria, acellular pertu is 2015 zzLef t Arm [id number] 115 GlaxoSmithKli ne complet ed tetanus, diphtheri a, acellular pertussis 03/18/15 Given Ambulat ory Pharmac y tetanus toxoid, reduced diphtheria toxoid, and acellular pertu is vaccine, adsorbed 1 2015 Unknown, Provider [id number] 115 Smithine (B) complet ed tetanus toxoid, reduced diphtheri a toxoid, and acellular pertussis vaccine, adsorbed DoD zoster vaccine, live 1 2015 Unknown, Provider [id number] Merck (MSD) complet ed zoster vaccine, live DoD influenza, seasonal, injectable-pf 2014 zzRig ht Arm [id number] 140 CSL Behring complet ed influenza , seasonal, injectabl e-pf 12/14/14 Given Ambulat ory Pharmac y Influenza, seasonal, injectable, preservative free 1 2014 Unknown, Provider [id number] 140 [email or web address] (CSL) complet ed Influenza , seasonal, injectabl e, preservat cal free DoD influenza, seasonal, injectable-pf 2013 zzLef t Arm [id number] 140 Novartis Pharmaceutica ls complet ed influenza , seasonal, injectabl e-pf 12/04/13 Given Ambulat ory Pharmac y Influenza, seasonal, injectable, preservative free 1 2013 Unknown, Provider [id number] 140 Novartis Pharmaceutica l Eleazar. (NOV) complet ed Influenza , seasonal, injectabl e, preservat cal free DoD hepatitis A adult vaccine 1998 [id number] 52 Merck & Company Inc complet ed hepatitis A adult vaccine 12/28/98 Given Ambulat ory Pharmac y hepatitis B adult vaccine 1998 [id number] 43 GlaxoSmithKli ne complet ed hepatitis B adult vaccine 12/28/98 Given Ambulat ory Pharmac y hepatitis B vaccine, adult dosage 3 1998 Unknown, Provider [id number] 43 SmithKline (SKB) complet ed hepatitis B vaccine, adult dosage DoD hepatitis A vaccine, adult dosage 2 1998 Unknown, Provider [id number] 52 Merck (MSD) complet ed hepatitis A vaccine, adult dosage DoD hepatitis B adult vaccine 1998 [id number] 43 GlaxoSmithKli ne complet ed hepatitis B adult vaccine 06/10/98 Given Ambulat ory Pharmac y hepatitis B vaccine, adult dosage 2 1998 Unknown, Provider [id number] 43 SmithKline (SKB) complet ed hepatitis B vaccine, adult dosage DoD typhoid vaccine, parenteral 1998 [id number] 41 [employer] complet ed typhoid vaccine, parentera l 05/11/98 Given Ambulat ory Pharmac y poliovirus vaccine, inactivated 1998 [id number] 10 [employer] complet ed polioviru s vaccine, inactivat ed 05/11/98 Given Ambulat ory Pharmac y poliovirus vaccine, inactivated 1 1998 Unknown, Provider [id number] 10 [employer] (CON) complet ed polioviru s vaccine, inactivat ed DoD typhoid vaccine, parenteral, other than acetone-kille d, dried 1 1998 Unknown, Provider [id number] 41 [employer] (CON) complet ed typhoid vaccine, parentera l, other than acetone-k illed, dried DoD hepatitis B adult vaccine 1998 [id number] 43 GlaxoSmithKli ne complet ed hepatitis B adult vaccine 05/04/98 Given Ambulat ory Pharmac y hepatitis A adult vaccine 1998 [id number] 52 Merck & Company Inc complet ed hepatitis A adult vaccine 05/04/98 Given Ambulat ory Pharmac y tetanus-dipht h toxoids (Td) adult/adol [id number] [employer] complet ed tetanus-d iphth toxoids (Td) adult/ado l 05/04/98 Given Ambulat ory Pharmac y tetanus and diphtheria toxoids, adsorbed, preservative free, for adult use (2 Lf of tetanus toxoid and 2 Lf of diphtheria toxoid) 1 1998 Unknown, Provider [id number] 09 [employer] (CON) complet ed tetanus and diphtheri a toxoids, adsorbed, preservat cal free, for adult use (2 Lf of tetanus toxoid and 2 Lf of diphtheri a toxoid) DoD hepatitis B vaccine, adult dosage 1 1998 Unknown, Provider [id number] 43 [employer] (SKB) complet ed hepatitis B vaccine, adult dosage DoD hepatitis A vaccine, adult dosage 1 1998 Unknown, Provider [id number] 52 Merck (MSD) complet ed hepatitis A vaccine, adult dosage DoD Encounters Combined list of: 1) Encounters from Department of Veterans Affairs facilities going backup to the last 18 months, not all VA inpatient encounters are included; 2) Encounters from the Department of Defense facilities going backup to 280 months. Location Location Details Encounter Type Encounter Number Reason For Visit Attending Provider ADM Date DC Date Status Disposition Source [facility] ([facility])(Nba rology) OUTPATIENT [id number] LOLY Caal 11/22 Released w/o Limitations [employer] [place] [facility])(N eurolog y) [facility] [place] [facility])(Fam nixon Practice Non-GME FHI2) OUTPATIENT [id number] Annual Pap YUNI CLOUD 08/07 Released w/o Limitations [facility] [place] [facility])(F amily Practic e Non-GME FHI2) [facility] [place] [facility])(Storage Solutions Architect ecology) OUTPATIENT [id number] changes in cervix and polyp ELGIN GROSSMAN 09/05 Released w/o Limitations [address] [place], [place] [address]B [facility])(G ynecolo gy) [address] [place], [place] [address]B [facility]) TELE CONSULT [id number] Med Refill YUNI COCHRAN 12/[address] [place] [address])(F amily Practic e Non-GME FHI2) [address] [place] [address])([facility] nixon Practice Non-GME FHI2) OUTPATIENT [id number] chest congest /cough/ thinks low grade temp ROGER AVILA 02/14 Released w/o Limitations [address] [place], [place] [address]B [facility])(F amily Practic e Non-GME FHI2) [address] [place], [place] [address]B [facility] Non-GME FHI2) OUTPATIENT [id number] chest jamilah with bad cough and rt side chest pain YUNI CLOUD 03/07 Released w/o Limitations [address] [place] [address])(F amily Practic e Non-GME FHI2) [address] [place], [place] [address]B [facility] Non-GME FHI2) TELE CONSULT [id number] med refill- NESS Alexis 06/[address] [place] [address])(F amily Practic e Non-GME FHI2) [address] [place] [address])([facility] Practice Non-GME FHI2) OUTPATIENT [id number] questio jean carlos about b/p,thy roid YUNI CLOUD 07/10 Released w/o Limitations [address] [place] [address])(F amily Practic e Non-GME FHI2) [address] [place], [place] [address]B [facility] Non-GME FHI2) OUTPATIENT [id number] f/u ER-HTN KAMARI MAYBERRY 08/09 Released w/o Limitations [address] [place], [place] [address]B [facility])(F amily Practic e Non-GME FHI2) [address] [place], [place] [address]B [facility] Non-GME FHI2) TELE CONSULT [id number] PCM: Esperanza Contact #: [phone] BARRON SHAHZAD A 08/[address] [place] [address] Group [employer] [facility])(F amily Practic e Non-GME FHI2) [address] [place] [address] [employer] [facility])([facility] Practice Non-GME FHI2) TELE CONSULT [id number] JESSICA Richard 10/[address] [place] [address] Group [employer] [facility])(F amily Practic e Non-GME FHI2) [address] [place] [address] [employer] [facility])([facility] Practice Non-GME FHI2) OUTPATIENT [id number] annual pap ROGER AVILA 11/14 Released w/o Limitations [address] [place] [address] Group [employer] [facility])(F amily Practic e Non-GME FHI2) [address] [place] [address] [facility])(Storage Solutions Architect ecology) OUTPATIENT [id number] CHARLOTTE OSPINA 11/26 Released w/o Limitations [address] [place] [address] Group [facility])(G ynecolo gy) [address] [place] [address] [facility] B [facility])(Storage Solutions Architect ecology) OUTPATIENT [id number] po OZZIE AMOR 11/29 Released w/o Limitations [address] [place] [address] Group [employer] [facility])(G ynecolo gy) [address] [place] [address] [employer] [facility])(Storage Solutions Architect ecology) TELE CONSULT [id number] Colpo Results JAXON LEVY L 12/[address] [place] [address] [facility] B [facility])(G ynecolo gy) [address] [place] [address] [employer] ([facility])([facility] Non-GME FHI2) OUTPATIENT [id number] possibl e scaROGER Iyer 12/11 Released w/o Limitations [address] [place] [address] Group [employer] [facility])(F amily Practic e Non-GME FHI2) [address] [place] [address] [employer] [facility])([facility] Practice Non-GME FHI2) TELE CONSULT [id number] B/C KEITH Dela Cruz 12/[address] [place] [address] [employer] [facility])(F amily Practic e Non-GME FHI2) [address] [place] [address] [facility])(Fam nixon Practice Non-GME FHI2) OUTPATIENT [id number] congest ed cough LEILA TOLLIVER 02/12 Released w/o Limitations [facility])(F amily Practic e Non-GME FHI2) [facility])(Storage Solutions Architect ecology) OUTPATIENT [id number] HOT FLASHES OZZIE AMOR 05/03 Released w/o Limitations [facility])(G ynecolo gy) Procedures Combined list of: 1) Procedures from Department of Veterans Affairs facilities [facility], not all VA non-surgical procedures are included; 2) All procedures from the Department of Defense facilities. Procedure Procedure Type Code Date Perfomer Comments Sourc e No data available for this section Ambulatory Pharmacy PSYCHIATRIC EVALUATION OF HOSPITAL RECORDS, OTHER PSYCHIATRIC REPORTS, PSYCHOMETRIC AND/OR PROJECTIVE TESTS, AND OTHER ACCUMULATED DATA FOR MEDICALDIAGNOSTIC PURPOSES DoD BRIEF EMOTIONAL/BEHAVIORAL ASSESSMENT (EG, DEPRESSION INVENTORY, ATTENTION-DEFICIT/HYP ERACTIVITY DISORDER [ADHD] SCALE), WITH SCORING AND DOCUMENTATION, PER STANDARDIZED INSTRUMENT DoD BRIEF EMOTIONAL/BEHAVIORAL ASSESSMENT (EG, DEPRESSION INVENTORY, ATTENTION-DEFICIT/HYP ERACTIVITY DISORDER [ADHD] SCALE), WITH SCORING AND DOCUMENTATION, PER STANDARDIZED INSTRUMENT DoD BRIEF EMOTIONAL/BEHAVIORAL ASSESSMENT (EG, DEPRESSION INVENTORY, ATTENTION-DEFICIT/HYP ERACTIVITY DISORDER [ADHD] SCALE), WITH SCORING AND DOCUMENTATION, PER STANDARDIZED INSTRUMENT DoD BRIEF EMOTIONAL/BEHAVIORAL ASSESSMENT (EG, DEPRESSION INVENTORY, ATTENTION-DEFICIT/HYP ERACTIVITY DISORDER [ADHD] SCALE), WITH SCORING AND DOCUMENTATION, PER STANDARDIZED INSTRUMENT DoD BRIEF EMOTIONAL/BEHAVIORAL ASSESSMENT (EG, DEPRESSION INVENTORY, ATTENTION-DEFICIT/HYP ERACTIVITY DISORDER [ADHD] SCALE), WITH SCORING AND DOCUMENTATION, PER STANDARDIZED INSTRUMENT DoD BRIEF EMOTIONAL/BEHAVIORAL ASSESSMENT (EG, DEPRESSION INVENTORY, ATTENTION-DEFICIT/HYP ERACTIVITY DISORDER [ADHD] SCALE), WITH SCORING AND DOCUMENTATION, PER STANDARDIZED INSTRUMENT DoD BRIEF EMOTIONAL/BEHAVIORAL ASSESSMENT (EG, DEPRESSION INVENTORY, ATTENTION-DEFICIT/HYP ERACTIVITY DISORDER [ADHD] SCALE), WITH SCORING AND DOCUMENTATION, PER STANDARDIZED INSTRUMENT DoD BRIEF EMOTIONAL/BEHAVIORAL ASSESSMENT (EG, DEPRESSION INVENTORY, ATTENTION-DEFICIT/HYP ERACTIVITY DISORDER [ADHD] SCALE), WITH SCORING AND DOCUMENTATION, PER STANDARDIZED INSTRUMENT DoD BRIEF EMOTIONAL/BEHAVIORAL ASSESSMENT (EG, DEPRESSION INVENTORY, ATTENTION-DEFICIT/HYP ERACTIVITY DISORDER [ADHD] SCALE), WITH SCORING AND DOCUMENTATION, PER STANDARDIZED INSTRUMENT DoD BRIEF EMOTIONAL/BEHAVIORAL ASSESSMENT (EG, DEPRESSION INVENTORY, ATTENTION-DEFICIT/HYP ERACTIVITY DISORDER [ADHD] SCALE), WITH SCORING AND DOCUMENTATION, PER STANDARDIZED INSTRUMENT DoD BRIEF EMOTIONAL/BEHAVIORAL ASSESSMENT (EG, DEPRESSION INVENTORY, ATTENTION-DEFICIT/HYP ERACTIVITY DISORDER [ADHD] SCALE), WITH SCORING AND DOCUMENTATION, PER STANDARDIZED INSTRUMENT DoD BRIEF EMOTIONAL/BEHAVIORAL ASSESSMENT (EG, DEPRESSION INVENTORY, ATTENTION-DEFICIT/HYP ERACTIVITY DISORDER [ADHD] SCALE), WITH SCORING AND DOCUMENTATION, PER STANDARDIZED INSTRUMENT DoD BRIEF EMOTIONAL/BEHAVIORAL ASSESSMENT (EG, DEPRESSION INVENTORY, ATTENTION-DEFICIT/HYP ERACTIVITY DISORDER [ADHD] SCALE), WITH SCORING AND DOCUMENTATION, PER STANDARDIZED INSTRUMENT DoD BRIEF EMOTIONAL/BEHAVIORAL ASSESSMENT (EG, DEPRESSION INVENTORY, ATTENTION-DEFICIT/HYP ERACTIVITY DISORDER [ADHD] SCALE), WITH SCORING AND DOCUMENTATION, PER STANDARDIZED INSTRUMENT DoD BRIEF EMOTIONAL/BEHAVIORAL ASSESSMENT (EG, DEPRESSION INVENTORY, ATTENTION-DEFICIT/HYP ERACTIVITY DISORDER [ADHD] SCALE), WITH SCORING AND DOCUMENTATION, PER STANDARDIZED INSTRUMENT DoD BRIEF EMOTIONAL/BEHAVIORAL ASSESSMENT (EG, DEPRESSION INVENTORY, ATTENTION-DEFICIT/HYP ERACTIVITY DISORDER [ADHD] SCALE), WITH SCORING AND DOCUMENTATION, PER STANDARDIZED INSTRUMENT DoD PSYCHOTHERAPY, 60 MINUTES WITH PATIENT 016 DoD PSYCHOTHERAPY, 60 MINUTES WITH PATIENT 016 DoD PSYCHOTHERAPY, 60 MINUTES WITH PATIENT 016 DoD PSYCHOTHERAPY, 60 MINUTES WITH PATIENT 016 DoD PSYCHOTHERAPY, 60 MINUTES WITH PATIENT 016 DoD PSYCHOTHERAPY, 60 MINUTES WITH PATIENT 016 DoD PSYCHOTHERAPY, 60 MINUTES WITH PATIENT 015 DoD PSYCHOTHERAPY, 60 MINUTES WITH PATIENT 015 DoD PSYCHOTHERAPY, 60 MINUTES WITH PATIENT 015 DoD PSYCHOTHERAPY, 45 MINUTES WITH PATIENT 10/16/2 015 DoD PSYCHOTHERAPY, 60 MINUTES WITH PATIENT DoD PSYCHOTHERAPY, 60 MINUTES WITH PATIENT DoD PSYCHOTHERAPY, 60 MINUTES WITH PATIENT DoD PSYCHOTHERAPY, 60 MINUTES WITH PATIENT DoD PSYCHOTHERAPY, 30 MINUTES WITH PATIENT DoD PSYCHOTHERAPY, 60 MINUTES WITH PATIENT DoD PSYCHOTHERAPY, 60 MINUTES WITH PATIENT DoD PSYCHOTHERAPY, 60 MINUTES WITH PATIENT DoD PSYCHOTHERAPY, 60 MINUTES WITH PATIENT 014 DoD PSYCHOTHERAPY, 60 MINUTES WITH PATIENT DoD PSYCHOTHERAPY, 60 MINUTES WITH PATIENT DoD PSYCHOTHERAPY, 60 MINUTES WITH PATIENT DoD PSYCHOTHERAPY, 60 MINUTES WITH PATIENT DoD PSYCHOTHERAPY, 60 MINUTES WITH PATIENT DoD PSYCHOTHERAPY, 60 MINUTES WITH PATIENT DoD PSYCHOTHERAPY, 60 MINUTES WITH PATIENT DoD PSYCHOTHERAPY, 60 MINUTES WITH PATIENT DoD PSYCHOTHERAPY, 30 MINUTES WITH PATIENT DoD PSYCHIATRIC DIAGNOSTIC EVALUATION DoD COLPOSCOPY OF THE CERVIX INCLUDING UPPER/ADJACENT VAGINA; WITH BIOPSY(S) OF THE CERVIX AND ENDOCERVICAL CURETTAGE 006 DoD SCREENING PAPANICOLAOU SMEAR; OBTAINING, PREPARING AND CONVEYANCE OF CERVICAL OR VAGINAL SMEAR TO LABORATORY 006 DoD LVL IV-SRG PATHOLOGY,GROSS &MICROSCOPIC EXAM ABORT-SPON/MISSED ART,BX BN MARRW, BX BN EXOSTOSIS BRAIN/MENINGES,OTH THAN,TUMR RESCT BRST,BX,NOT REQ MICROS EVAL,SRG JEREMIAH BRST,REDUCT MAMMOPLASTY BRONCHS 005 DoD SCREENING PAPANICOLAOU SMEAR; OBTAINING, PREPARING AND CONVEYANCE OF CERVICAL OR VAGINAL SMEAR TO LABORATORY 005 DoD SCREENING [place]AP[place] SMEAR; OBTAINING, PREPARING AND CONVEYANCE OF CERVICAL OR VAGINAL SMEAR TO LABORATORY 004 DoD SCREENING [place] SMEAR; OBTAINING, PREPARING AND CONVEYANCE OF CERVICAL OR VAGINAL SMEAR TO LABORATORY 003 DoD NONINVASIVE EAR OR PULSE OXIMETRY FOR OXYGEN SATURATION; SINGLE DETERMINATION 003 DoD NONINVASIVE EAR OR PULSE OXIMETRY FOR OXYGEN SATURATION; SINGLE DETERMINATION 003 DoD NONINVASIVE EAR OR PULSE OXIMETRY FOR OXYGEN SATURATION; SINGLE DETERMINATION 002 [facility] NONINVASIVE EAR OR PULSE OXIMETRY FOR OXYGEN SATURATION; SINGLE DETERMINATION 002 [facility] INTUBATION OF NASOLACRIMAL DUCT 997 [facility] DIAGNOSTIC ULTRASOUND OF ABDOMEN AND RETROPERITONEUM 992 [facility] COMPUTERIZED AXIAL TOMOGRAPHY OF ABDOMEN 992 [facility] BIOPSY OF SKIN AND SUBCUTANEOUS TISSUE 992 [facility] OTHER ENDOSCOPY OF SMALL INTESTINE 991 [facility] Psychiatric Diagnostic Evaluation Review of Records and Reports Psychiatric Diagnostic Evaluation Review of Records and Reports 54483 019 EVA CORRALES [facility] Psychometric Emotional / Behavioral A e ment Psychometric Emotional / Behavioral Assessment 08914 018 LIU, DIMITRI [facility] Psychotherapy Individual Approximately 60 Minutes Psychotherapy Individual Approximately 60 Minutes 92012 018 LIU, A[facility]E [facility] Psychometric Emotional / Behavioral A e ment Psychometric Emotional / Behavioral Assessment 82131 018 LIU, [facility] Psychotherapy Individual Approximately 60 Minutes Psychotherapy Individual Approximately 60 Minutes [id number] 018 LIU, [facility] Psychometric Emotional / Behavioral A e ment Psychometric Emotional / Behavioral Assessment 34695 018 LIU, [facility] Psychotherapy Individual Approximately 60 Minutes Psychotherapy Individual Approximately 60 Minutes 45069 018 LIU, [facility] Psychometric Emotional / Behavioral A e ment Psychometric Emotional / Behavioral Assessment 17674 018 LIU, [facility] Psychotherapy Individual Approximately 45 Minutes Psychotherapy Individual Approximately 45 Minutes 91951 018 LIU, [facility] Psychometric Emotional / Behavioral A e ment Psychometric Emotional / Behavioral Assessment 00281 018 LIU, [facility] Psychotherapy Individual Approximately 45 Minutes Psychotherapy Individual Approximately 45 Minutes [id number] 018 LIU, [facility] Psychometric Emotional / Behavioral A e ment Psychometric Emotional / Behavioral Assessment 48506 018 LIU, [facility] Psychotherapy Individual Approximately 45 Minutes Psychotherapy Individual Approximately 45 Minutes 28145 018 LIU, [facility] Psychometric Emotional / Behavioral A e ment Psychometric Emotional / Behavioral Assessment 54421 017 LIU, [facility] Psychotherapy Individual Approximately 60 Minutes Psychotherapy Individual Approximately 60 Minutes 92180 017 LIU, DIMITRI Do[facility] Psychometric Emotional / Behavioral A e ment Psychometric Emotional / Behavioral Assessment 16063 017 LIU, DIMITRI Do[facility] Psychotherapy Individual Approximately 60 Minutes Psychotherapy Individual Approximately 60 Minutes 55425 017 LIU, DIMITRI Do[facility] Psychometric Emotional / Behavioral A e ment Psychometric Emotional / Behavioral Assessment 95409 017 LIU, DIMITRI Do[facility] Psychotherapy Individual Approximately 60 Minutes Psychotherapy Individual Approximately 60 Minutes 22504 017 LIU, DIMITRI Do[facility] Psychometric Emotional / Behavioral A e ment Psychometric Emotional / Behavioral Assessment 70824 017 LIU, DIMITRI DoD Psychotherapy Individual Approximately 45 Minutes Psychotherapy Individual Approximately 45 Minutes 52482 017 LIU, DIMITRI Do[facility] Psychometric Emotional / Behavioral A e ment Psychometric Emotional / Behavioral Assessment 50006 017 LIU, DIMITRI DoD Psychotherapy Individual Approximately 60 Minutes Psychotherapy Individual Approximately 60 Minutes 61958 017 LIU, DIMITRI DoD Psychometric Emotional / Behavioral A e ment Psychometric Emotional / Behavioral Assessment 73924 017 LIU, DIMITRI Do[facility] Psychotherapy Individual Approximately 60 Minutes Psychotherapy Individual Approximately 60 Minutes 13311 017 LIU, DIMITRI [facility] Psychometric Emotional / Behavioral A e ment Psychometric Emotional / Behavioral Assessment 99479 017 LIU, DIMITRI Do[facility] Psychotherapy Individual Approximately 60 Minutes Psychotherapy Individual Approximately 60 Minutes 89838 017 LIU, DIMITRI [facility] Psychometric Emotional / Behavioral A e ment Psychometric Emotional / Behavioral Assessment 31540 017 LIU, DIMITRI DoD Psychotherapy Individual Approximately 60 Minutes Psychotherapy Individual Approximately 60 Minutes 12535 017 LIU, DIMITRI Do[facility] Psychometric Emotional / Behavioral A e ment Psychometric Emotional / Behavioral Assessment 12563 016 LIU, DIMITRI DoD Psychotherapy Individual Approximately 45 Minutes 016 LIU, DIMITRI Do[facility] Psychometric Emotional / Behavioral A e ment Psychometric Emotional / Behavioral Assessment 84606 016 LIU, DIMITRI DoD Psychotherapy Individual Approximately 45 Minutes 016 LIU, DIMITRI DoD Psychotherapy Individual Approximately 60 Minutes 016 LIU, DIMITRI DoD Psychotherapy Individual Approximately 60 Minutes 016 LIU, DIMITRI DoD Psychotherapy Individual Approximately 60 Minutes 016 LIU, DIMITRI DoD Psychotherapy Individual Approximately 60 Minutes 016 LIU, DIMITRI DoD Psychotherapy Individual Approximately 60 Minutes 016 LIU, DIMITRI DoD Psychotherapy Individual Approximately 60 Minutes 016 LIU, DIMITRI DoD Psychotherapy Individual Approximately 60 Minutes 015 LIU, DIMITRI DoD Psychotherapy Individual Approximately 60 Minutes 015 LIU, DIMITRI DoD Psychotherapy Individual Approximately 60 Minutes 015 LIU, DIMITRI DoD Psychotherapy Individual Approximately 45 Minutes 015 LIU, DIMITRI DoD Psychotherapy Individual Approximately 60 Minutes 015 LIU, DIMITRI DoD Psychotherapy Individual Approximately 60 Minutes 015 LIU, DIMITRI DoD Psychotherapy Individual Approximately 60 Minutes 015 LIU, DIMITRI DoD Psychotherapy Individual Approximately 60 Minutes 015 LIU, DIMITRI DoD Psychotherapy Individual Approximately 30 Minutes 015 LIU, DIMITRI DoD Psychotherapy Individual Approximately 60 Minutes 015 LIU, DIMITRI DoD Psychotherapy Individual Approximately 60 Minutes 014 LIU, DIMITRI DoD Psychotherapy Individual Approximately 60 Minutes 014 LIU, DIMITRI DoD Psychotherapy Individual Approximately 60 Minutes 014 LIU, DIMITRI DoD Psychotherapy Individual Approximately 60 Minutes 014 LIU, DIMITRI DoD Psychotherapy Individual Approximately 60 Minutes 014 LIU, DIMITRI DoD Psychotherapy Individual Approximately 60 Minutes 014 LIU, DIMITRI DoD Psychotherapy Individual Approximately 60 Minutes 014 LIU, DIMITRI DoD Psychotherapy Individual Approximately 60 Minutes 014 LIU, DIMITRI DoD Psychotherapy Individual Approximately 60 Minutes 014 LIU, DIMITRI DoD Psychotherapy Individual Approximately 60 Minutes 014 LIU, DIMITRI DoD Psychotherapy Individual Approximately 60 Minutes 014 LIU, DIMITRI DoD Psychotherapy Individual Approximately 30 Minutes 014 GISELLE MADERA [facility] Psychiatric Diagnostic Evaluation Initial Psychiatric Diagnostic Evaluation Initial [id number] [id number] GISELLE MADERA [facility] Colposcopy With Biopsy Colposcopy With Biopsy 04367 006 JAXON ESPINOZA [facility] Screening papanicolaou smear; obtaining, preparing and conveyance of cervical or vaginal smear to laboratory 006 ROGER AVILA [facility] Colposcopy With Biopsy Colposcopy With Biopsy 96848 ELGIN GROSSMAN [facility] Surgical Pathology Level IV Cervical/Endometrial Polyp 005 ELGIN GROSSMAN [facility] Screening papanicolaou smear; obtaining, preparing and conveyance of cervical or vaginal smear to laboratory 005 JOAO HERNANDEZ [facility] Social History Combined list of available smoking, tobacco, and other social history from [facility] facilities. Social History Type Response Date Comment [facility] e This section is an empty social history section. DoD Assessment and Plan Combined list of future care activities from [facility] and [facility] facilities (e.g., assessment and plan notes, appointments, orders, and referrals). Additional future care activities may be listed in the Plan of Care section. Result Assessment and Plan Date Source Assessment and Plan No data available for this section 05/13/2024 Ambulatory [facility]acy Functional Status Combined list of recent functional and cognitive assessments recorded at [facility] Functional Geneva Measurement (FIM) Scale: 1 = Total Assistance (Subject = 0% +), 2 = Maximal Assistance (Subject = 25% +), 3 = Moderate Assistance (Subject = 50% +), 4 = Minimal Assistance (Subject = 75% +), 5 = Supervision, 6 = Modified Geneva (Device), 7 = Complete Geneva (Timely, Safely). Assessment Date/Time Source Assessment Type Assessment Skill Assessment Score Assessment Details No data available for this section
--- OUTSIDE RECORDS SUMMARY | 2024-05-13 17:39 | XMS_ITS | Continuity of Care Document ---
Author Organization [facility] Address [address] [facility] [address] [place] [address] Phone Care Team Providers Care Offset Printer Name Role Phone Harry Post MD Unavailable Unavailable Allergies, Adverse Reactions, Alerts Substance Reaction Status Criticality No Known Allergies Active No Inform ation Medications Medication Instructions Dosage Effective Dates (start - stop) Status Comments temazepam 30 mg capsule - Active alcohol swabs USE DIRECTED - Active Skyrizi 150 mg/mL subcutaneous pen injector - Active cetirizine 10 mg tablet TAKE ONE TABLET BY MOUTH DAILY - Active duloxetine 30 mg capsule,delayed release - Active Procedures Procedure Date POSTOP FOLLOW-UP VISIT POSTOP FOLLOW-UP VISIT REVISION OF UPPER EYELID REPAIR EYELID DEFECT EYE PHOTOGRAPHY - EXTERNAL VISUAL FIELD -LIMITED OFFICE/OUTPATIENT VISIT, NEW Advance Directives Directive Yes / No Effective Date File Name No Information Encounters Encounter Description Practice Location Reason(s) For Visit Diagnoses Date Provider Providers Copied on Encounter [facility], [id number] [place] [address], [place], [place], [id number], [place] tel:[phone] [facility] CONSULT BRANDYN KRAMER f/u post-Bleph aroplasty BUL (chief complaint) Dermatochalasi s of left upper eyelid May- 5 [facility] Mcdonald. [address] [place] [address], [address], [place], [id number], [place]. tel:[phone] Referring Provider: [address] [place], [address]. tel:[phone] [facility], [address] [place] [address], [id number], tel:[phone] OPH CONSULT BRANDYN KRAMER Post-Op (chief complaint) Dermatochalasi s of left upper eyelid 4 Sincere Harry. [address] [place] [address], [place] [address], [place], [place], [id number], [place]. tel:[phone] Referring Provider: [address] [place], [address]. tel:[phone] [facility], [address] [place] [address], [id number], tel:[phone] [facility] [place] No Information 4 Sincere Alvas. [address] [place] [address], [place] [address], [place], [place], [id number], [place]. tel:[phone] Referring Provider: [address] [place], [address]. tel:[phone] [facility], [address] [place] [address], [id number], tel:[phone] [facility] CONSULT BRANDYN KRAMER No Information 4 Ingalls Harry. [address] [place] [address], [place] [address], [place], [place], [id number], [place]. tel:[phone] OFFICE/OUTPA TIENT VISIT, [facility], [address] [place] [address], [id number], [place] tel:[phone] OPH CONSULT BRANDYN KRAMER drooping lids (chief complaint) Dermatochalasi s of left upper eyelidDermatoc halasis of right upper eyelidMechanic al ptosis of bilateral eyelids Dec-3 4 Sincere Mcdonald. [address] [facility], [address], [place], [place], [id number], [place]. tel:[phone] Referring Provider: Virgie Nolan, [address] [place], [address]. tel:[phone] [facility], [address] [facility] [address], [place], [place], [id number], [place] tel:[phone] OPH CONSULT BRANDYN KRAMER No Information 4 Sincere Mcdonald. [address] [facility], [address], [place], [place], [id number], [place]. tel:[phone] Family History Family Member Type Diagnosis Age At Onset Problem No family history of Macular degeneration Problem No family history of [place] a Payers Payer name Insurance type Covered democrat ID Authorizmaury scott(s) [facility] [employer] [id number] [employer] PPO [id number] Social History Type Description Quantity Date Captured Comments Alcohol Use Details Unknown Caffeine Use Details Unknown Tobacco Use Status Current non-smoker Smoking Status Never smoker Non-Smoking Tobacco Use Details : No Details Available : No Details Available Sex Female Chief Complaint And Reason For Visit From encounter dated '05/05/2024 10:30'. f/u post-Blepharoplasty BUL (chief complaint). Description: The 69 year old female presents for evaluation of f/u post-Blepharoplasty BUL (01/27/24) - Pt feels that she is doing well since sx. She isseeing much better. Peripheral va is so much better. Concerned about some scarring that is visible in the Rt temporal of OD. Had a stye LLL last wk that PCP rx'd elissa that she is using currently. Eye Rx: Elissa LLL Qid , ATs prn OU Plan Of Treatment Date Type Action Status No Information History Of Present Illness Encounter Date Complaint History Of Prese nt Illness f/u post-Blepharoplasty BUL The 69 year old female presents for evaluation of f/u post-Blepharoplasty BUL (11/25/24) - Pt feels that she is doing well since sx. She is seeing much better. Peripheral va is so much better. Concerned about some scarring that is visible in the Rt temporal of OD. Had a stye LLL last wk that PCP rx'd elissa that she is using currently. Eye Rx: Elissa LLL Qid , ATs prn OU Post-Op Additional infor mation: 2 week PO Blepharoplasty OU Patient states eyes are feeling good, concerned with bruising on OS. ELISSA QID , cool compresses OU BID. drooping lids The 68 year old female presents for evaluation of drooping lids, patient says that she has noticed that BUL started to droop into her vision over the last 8-9 months. She feels that fatigue does make the drooping worse. She can see better whenever she lifts her lids up. She has noticed difficulty changing lanes while driving due to decreased peripheral vision. She has also noticed that her depth perception is off. Feels reading has become more difficult as well. She is currently using ATs for dry eye. Uses Lumify gtt's. No hx of eyelid sx Patient is not diabetic, not on blood thinner, does not have a heart stent/defibrillatorPCP-Dr. Cesar Griggs, [facility] Instructions Date Instruction Additional Karan rubio Impression/Plan Related to [place] tochalasis of left upper eyelid Impression/Plan Related to [place] tochalasis of left upper eyelid Impression/Plan Related to Mecha nical ptosis of bilateral eyelids Impression/Plan Related to [place] tochalasis of right upper eyelid Impression/Plan Related to [place] tochalasis of left upper eyelid Assessments Type Assessment Date assessment Dermatochalasis of left upper ey elid impression S/P Blepharoplasty B UL OU - 17 Days. Dermatochalasis of left upper eyelid H02.834. Excellent post op course Post operative instructions reviewed - Condition is improving -2 week PO Blepharoplasty OU Patient states eyes are feeling good, concerned with bruising on OS. ELISSA QID , cool compresses OU BID
--- NOTE | 2024-05-13 17:47 | ED_ITS ---
HPI - Nausea/Vomiting/Diarrhea General Chief complaint: Nausea/Vomiting/Diarrhea <Milagros Ortega PA-C - Last Filed: 05/13/24 17:54> Stated complaint: vomiting, diarrhea <Milagros Ortega PA-C - Last Filed: 05/13/24 17:54> Time Seen by Provider: 05/13/24 17:47 <Milagros Ortega PA-C - Last Filed: 05/13/24 17:54> Focused HPI: Patient is a 69-year-old female who presents the ED with report of nausea, vomiting, diarrhea. Patient reports she developed nausea and vomiting around 4pm on Saturday. Thought she may have food poisoning as sx's began after eating a salad around the same time. Yesterday, she felt a little bit better and was able to keep down some oatmeal. Denied any vomiting yesterday, but did have diarrhea. She attempted eating this morning and began having vomiting again. Reports only 6 episodes of emesis today. Feels very weak and dehydrated, lightheaded. Was referred to the ED by her PCP for IV fluids. Denies significant abdominal pain, but does report abdominal bloating. Denies fevers. Denies cough or cold symptoms. Denies family members with similar symptoms. GENERAL: Well-appearing, well-nourished, and in no acute distress. HEAD: Normocephalic, atraumatic. CHEST: Clear to auscultation. ?No respiratory distress. HEART: Regular rate and rhythm.? ABD: Minimal diffuse tenderness. NEURO: ?Alert and oriented x3. Patient screened in triage and initial orders placed.? ?Additional care and disposition to be based upon?diagnostic testing and treatment. <Milagros Ortega PA-C - Last Filed: 05/13/24 17:54> Focused HPI: Patient is a 69-year-old female who presents the ED with report of nausea, vomiting, diarrhea. Patient reports she developed nausea and vomiting around 4pm on Saturday. Thought she may have food poisoning as sx's began after eating a salad around the same time. Yesterday, she felt a little bit better and was able to keep down some oatmeal. Denied any vomiting yesterday, but did have diarrhea. She attempted eating this morning and began having vomiting again. Reports only 6 episodes of emesis today. Feels very weak and dehydrated, lightheaded. Was referred to the ED by her PCP for IV fluids. Denies significant abdominal pain, but does report abdominal bloating. Denies fevers. Denies cough or cold symptoms. Denies family members with similar symptoms. GENERAL: Well-appearing, well-nourished, and in no acute distress. HEAD: Normocephalic, atraumatic. CHEST: Clear to auscultation. ?No respiratory distress. HEART: Regular rate and rhythm.? ABD: Minimal diffuse tenderness. NEURO: ?Alert and oriented x3. Patient screened in triage and initial orders placed.? ?Additional care and disposition to be based upon?diagnostic testing and treatment. Agree with triage assessment. Patient is currently denying any nausea, denies any abdominal pain. No additional symptoms or concerns at this time. <Roberto Hill MD - Last Filed: 05/13/24 20:45> Source: patient <Milagros Ortega PA-C - Last Filed: 05/13/24 17:54> Mode of arrival: ambulatory <Milagros Ortega PA-C - Last Filed: 05/13/24 17:54> Limitations: no limitations <MAREN Sanz Last Filed: 05/13/24 17:54> Related Data Allergies/Adverse reactions: Allergies Allergy/AdvReac Type Severity Reaction Status Date / Time codeine Allergy VOMITING Verified 05/13/24 16:17 SULFA Allergy HIVES Uncoded 05/13/24 16:17 <Milagros Ortega PA-C - Last Filed: 05/13/24 17:54> Review of Systems 2 Review of Systems: All systems are reviewed and are negative unless stated otherwise in the HPI. <Roberto Hill MD - Last Filed: 05/13/24 20:45> Exam 2 Narrative: General: Alert, awake, afebrile, in no acute distress, pleasant female. HEENT: PERRL, no rhinorrhea, no post nasal drip, oropharynx clear. Neck: Trachea midline, no JVD, no lymphadenopathy. Cardiovascular: Regular rate and rhythm, no murmurs, rubs or gallops, no peripheral edema. Respiratory: Clear to auscultation bilaterally, no tachypnea, no wheezing, no rhonchi, no rubs, no respiratory distress. Abdomen: Soft, nontender, nondistended, no rebound, no guarding, no peritoneal signs. Musculoskeletal: No joint swelling or deformity, normal muscle tone. Skin: No rashes or petechia, no signs of infection. Psychiatric: Alert and oriented, normal behavior and judgment for situation. Neurological: Alert and oriented to person, place, and time. Follows all commands. No focal deficits, speech is clear and fluent. <Roberto Hill MD - Last Filed: 05/13/24 20:45> Course Vital Signs Vital signs: Vital Signs Temperature 98.1 F 05/13/24 16:14 Pulse Rate 60 05/13/24 16:14 Respiratory Rate 18 05/13/24 16:14 Blood Pressure 131/77 05/13/24 16:14 Pulse Oximetry 100 05/13/24 16:14 Oxygen Delivery Room Air 05/13/24 16:14 Temperature 98.1 F 05/13/24 16:14 Pulse Rate 51 L 05/13/24 19:26 Respiratory Rate 17 05/13/24 19:26 Blood Pressure 155/74 H 05/13/24 19:26 Pulse Oximetry 100 05/13/24 19:26 Oxygen Delivery Room Air 05/13/24 18:44 <Milagros Ortega PA-C - Last Filed: 05/13/24 17:54> Vital Signs Temperature 98.1 F 05/13/24 16:14 Pulse Rate 60 05/13/24 16:14 Respiratory Rate 18 05/13/24 16:14 Blood Pressure 131/77 05/13/24 16:14 Pulse Oximetry 100 05/13/24 16:14 Oxygen Delivery Room Air 05/13/24 16:14 Temperature 98.1 F 05/13/24 16:14 Pulse Rate 51 L 05/13/24 19:26 Respiratory Rate 17 05/13/24 19:26 Blood Pressure 155/74 H 05/13/24 19:26 Pulse Oximetry 100 05/13/24 19:26 Oxygen Delivery Room Air 05/13/24 18:44 <Roberto Hlil MD - Last Filed: 05/13/24 20:45> MDM - Nausea/Vomiting/Diarrhea MDM Narrative Medical decision making narrative: MSE by JENNIFER in triage. <Milagros Ortega PA-C - Last Filed: 05/13/24 17:54> MSE by JENNIFER in triage. The patient was evaluated by myself in the emergency department. History is obtained from patient who is an independent historian and physical exam was performed. External medical records were reviewed at this time. IV was established and pertinent tests were ordered. Patient was administered 1 L IV fluid bolus with normal saline and 4 mg IV Zofran for nausea. Laboratory results obtained revealing no acute process. Urinalysis revealed 1+ ketones. Viral swabs noted to be negative for COVID/influenza/RSV. Imaging studies obtained included CT abdomen and pelvis with IV contrast which was independently interpreted by me revealing: IMPRESSION: 1. Nodule in the left lung base measuring 4 mm. 6 months follow-up CT is advised. 2. 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 3. No evidence of appendicitis, diverticulitis or intestinal obstruction. Patient was informed of these findings at bedside and provided with a printout of her CT reported informed that she needs to follow-up regarding the lung nodule that was incidentally found on her CT abdomen and patient is agreeable with this plan. Differential diagnosis considerations include acute viral syndrome, gastroenteritis, dehydration, electrolyte derangements. Comorbidities impacting this visit include none. I have evaluated and discussed social determinants of health with the patient that could potentially impact subsequent diagnosis and treatment plans. On repeat assessment of the patient, reevaluation revealed that the patient is doing well and is in no acute distress. Patient symptoms have improved since she arrived to our emergency department. Repeat vital signs were all reviewed and noted to be stable. Differential diagnosis and treatment plan were discussed with the patient at bedside. Patient agrees with discussion and after shared medical decision making agrees with discharge. All questions were answered to the patient's satisfaction. Patient will follow up with her PCP in 3-5 days. A script for Zofran as patient is from disuse as needed for nausea/vomiting. Patient was provided with strict return precautions and instructed to return to the emergency department if any new or worsening symptoms develop. The patient was discharged in stable condition. <Roberto Hill MD - Last Filed: 05/13/24 20:45> Lab Data Result diagrams: 05/13/24 19:07 05/13/24 19:07 <Milagros Ortega PA-C - Last Filed: 05/13/24 17:54> Labs: Lab Results 05/13/24 05/13/24 Range/Units 19:07 19:21 WBC 8.1 (4.5-10.0) K/mm3 RBC 5.73 H (4.2-5.4) M/mm3 Hgb 15.8 H (12.0-15.0) g/dL Hct 49.6 H (37.0-47.0) % MCV 86.6 (80-100) fl MCH 27.6 (26-34) pg MCHC 31.9 L (32-36) g/dl RDW 13.6 (11.5-14.5) % Plt Count 321 (150-375) k/mm3 MPV 9.9 (7.4-10.4) fl Immature Gran % (Auto) 0.2 (0-0.5) % Neut % (Auto) 50.4 (45.5-73.1) % Lymph % (Auto) 41.0 (18.3-44.2) % Waldo % (Auto) 6.8 (2.6-8.5) % Eos % (Auto) 1.2 (0-4.4) % Baso % (Auto) 0.4 (0.2-1.2) % Lymph # (Auto) 3.32 H (0.9-3.2) K/mm3 Waldo # (Auto) 0.6 (0.1-0.6) K/mm3 Eos # (Auto) 0.1 (0-0.3) K/mm3 Baso # (Auto) 0.0 (0.0-0.1) K/mm3 Abs Immat Gran (auto) 0.02 (0.00-0.031) K/mm3 Absolute Neuts (auto) 4.1 (1.3-6.7) K/mm3 Absolute Nucleated RBC 0.000 (0.0-0.012) K/mm3 Nucleated RBC % 0.0 (0.0-0.2) % Sodium 141 (137-145) mmol/L Potassium 4.0 (3.4-5.0) mmol/L Chloride 101 (98-107) mmol/L Carbon Dioxide 30 (22-30) mmol/L Anion Gap 10 (4-12) mmol/L BUN 14 (7-17) mg/dL Creatinine 0.77 (0.7-1.0) mg/dL Estim Creat Clear Calc 47 ml/min Estimated GFR > 60 (59 - ) Glucose 102 (65-110) mg/dL Lactic Acid 0.9 (0.7-2.0) mmol/L Calcium 9.5 (8.4-10.2) mg/dL Magnesium 2.2 (1.6-2.3) mg/dL Total Bilirubin 0.5 (0.2-1.3) mg/dL AST 38 H (14-36) U/L ALT 32 (6-35) U/L Alkaline Phosphatase 80 (38-126) U/L Total Protein 9.0 H (6.3-8.2) g/dL Albumin 4.6 (3.5-5.1) g/dL Lipase 66 (23-300) U/L Urine Color Dark yellow (Yellow) Urine Appearance Turbid H (Clear) Urine pH 6.5 (5.0-9.0) Ur Specific [place] 1.019 (1.001-1.035) Urine Protein Trace (Negative) mg/dL Urine Glucose (UA) Negative (Negative) mg/dL Urine Ketones 1+ H (Negative) mg/dL Ur Blood (Man) Negative (Negative) Urine Nitrate Negative (Negative) Urine Bilirubin Negative (Negative) Urine Urobilinogen 1.0 (<2.0) mg/dL Leukocyte Esterase Rfl Negative (Negative) SAMI/UL Urine RBC 0-2 (0-2) /hpf Urine WBC 6-10 H (0-3) /hpf Ur Squamous Epith Cells Few (Few) /hpf Urine Bacteria 1+ H /hpf Urine Casts 0-2 Influenza A (RT-PCR) Negative (Negative) Influenza B (RT-PCR) Negative (Negative) RSV (RT-PCR) Negative (Negative) SARS-CoV-2 RNA (RT-PCR) Negative (Negative) <Milagros Ortega PA-C - Last Filed: 05/13/24 17:54> Lab Results 05/13/24 05/13/24 Range/Units 19:07 19:21 WBC 8.1 (4.5-10.0) K/mm3 RBC 5.73 H (4.2-5.4) M/mm3 Hgb 15.8 H (12.0-15.0) g/dL Hct 49.6 H (37.0-47.0) % MCV 86.6 (80-100) fl MCH 27.6 (26-34) pg MCHC 31.9 L (32-36) g/dl RDW 13.6 (11.5-14.5) % Plt Count 321 (150-375) k/mm3 MPV 9.9 (7.4-10.4) fl Immature Gran % (Auto) 0.2 (0-0.5) % Neut % (Auto) 50.4 (45.5-73.1) % Lymph % (Auto) 41.0 (18.3-44.2) % Waldo % (Auto) 6.8 (2.6-8.5) % Eos % (Auto) 1.2 (0-4.4) % Baso % (Auto) 0.4 (0.2-1.2) % Lymph # (Auto) 3.32 H (0.9-3.2) K/mm3 Waldo # (Auto) 0.6 (0.1-0.6) K/mm3 Eos # (Auto) 0.1 (0-0.3) K/mm3 Baso # (Auto) 0.0 (0.0-0.1) K/mm3 Abs Immat Gran (auto) 0.02 (0.00-0.031) K/mm3 Absolute Neuts (auto) 4.1 (1.3-6.7) K/mm3 Absolute Nucleated RBC 0.000 (0.0-0.012) K/mm3 Nucleated RBC % 0.0 (0.0-0.2) % Sodium 141 (137-145) mmol/L Potassium 4.0 (3.4-5.0) mmol/L Chloride 101 (98-107) mmol/L Carbon Dioxide 30 (22-30) mmol/L Anion Gap 10 (4-12) mmol/L BUN 14 (7-17) mg/dL Creatinine 0.77 (0.7-1.0) mg/dL Estim Creat Clear Calc 47 ml/min Estimated GFR > 60 (59 - ) Glucose 102 (65-110) mg/dL Lactic Acid 0.9 (0.7-2.0) mmol/L Calcium 9.5 (8.4-10.2) mg/dL Magnesium 2.2 (1.6-2.3) mg/dL Total Bilirubin 0.5 (0.2-1.3) mg/dL AST 38 H (14-36) U/L ALT 32 (6-35) U/L Alkaline Phosphatase 80 (38-126) U/L Total Protein 9.0 H (6.3-8.2) g/dL Albumin 4.6 (3.5-5.1) g/dL Lipase 66 (23-300) U/L Urine Color Dark yellow (Yellow) Urine Appearance Turbid H (Clear) Urine pH 6.5 (5.0-9.0) Ur Specific [place] 1.019 (1.001-1.035) Urine Protein Trace (Negative) mg/dL Urine Glucose (UA) Negative (Negative) mg/dL Urine Ketones 1+ H (Negative) mg/dL Ur Blood (Man) Negative (Negative) Urine Nitrate Negative (Negative) Urine Bilirubin Negative (Negative) Urine Urobilinogen 1.0 (<2.0) mg/dL Leukocyte Esterase Rfl Negative (Negative) SAMI/UL Urine RBC 0-2 (0-2) /hpf Urine WBC 6-10 H (0-3) /hpf Ur Squamous Epith Cells Few (Few) /hpf Urine Bacteria 1+ H /hpf Urine Casts 0-2 Influenza A (RT-PCR) Negative (Negative) Influenza B (RT-PCR) Negative (Negative) RSV (RT-PCR) Negative (Negative) SARS-CoV-2 RNA (RT-PCR) Negative (Negative) <Roberto Hill MD - Last Filed: 05/13/24 20:45> Discharge Plan Discharge Clinical Impression: Gastroenteritis, Dehydration <Milagros Ortega PA-C - Last Filed: 05/13/24 17:54> Patient Disposition: Home, Self-Care <Milagros Ortega PA-C - Last Filed: 05/13/24 17:54> Condition: Improved <Milagros Ortega PA-C - Last Filed: 05/13/24 17:54> Instructions: Antibiotic Form, Dehydration (ED), Gastroenteritis (ED) <Milagros Ortega PA-C - Last Filed: 05/13/24 17:54> Additional Instructions: Please follow-up with your family doctor within the next 3-5 days. Return to emergency department if any new or worsening symptoms develop. Use the prescribed Zofran as needed for nausea/vomiting. <Milagros Ortega PA-C - Last Filed: 05/13/24 17:54> Patient Language: Tuvaluan <Milagros Ortega PA-C - Last Filed: 05/13/24 17:54> Prescriptions: New ondansetron 4 mg tablet,disintegrating 4 mg PO Q8H PRN (Reason: nausea and vomiting) Qty: 14 0RF <Milagros Ortega PA-C - Last Filed: 05/13/24 17:54> Follow-up/Referrals: Emmie,DALTON Guerrero Jr. [Primary Care Provider] - 3 Days <Milagros Ortega PA-C - Last Filed: 05/13/24 17:54> Time of Disposition: 20:43 <Milagros Ortega PA-C - Last Filed: 05/13/24 17:54> 20:43 <Roberto Hill MD - Last Filed: 05/13/24 20:45>
[2024-05-13 18:44] VITALS: BP 171/85; PULSE 61; RESP 18; O2SAT 100
[2024-05-13] MEDS: ONDANSETRON INJ 4 MG/2 ML VIAL IV PUSH (19:16)
[2024-05-13] MEDS: SODIUM CHLORIDE 0.9% IV 1,000 ML 999 ML IV CONT (19:16)
[2024-05-13 19:20] LABS: Basophils Percent Auto 0.4 % (0.2-1.2); Eosinophils Absolute Auto 0.1 K/mm3 (0-0.3); Eosinophils Percent Auto 1.2 % (0-4.4); Hematocrit 49.6 % (37.0-47.0); Hemoglobin 15.8 g/dL (12.0-15.0); Immature Granulocyte Absolute 0.02 K/mm3 (0.00-0.031); Immature Granulocyte Percent A 0.2 % (0-0.5); Lymphocytes Absolute Auto 3.32 K/mm3 (0.9-3.2); Mean Corpuscular HGB Conc 31.9 g/dl (32-36); Mean Corpuscular Hemoglobin 27.6 pg (26-34); Mean Corpuscular Volume 86.6 fl (80-100); Mean Platelet Volume 9.9 fl (7.4-10.4); Monocytes Absolute Auto 0.6 K/mm3 (0.1-0.6); Monocytes Percent Auto 6.8 % (2.6-8.5); Neutrophils Absolute Auto 4.1 K/mm3 (1.3-6.7); Neutrophils Percent Auto 50.4 % (45.5-73.1); Platelet Count Result 321 k/mm3 (150-375); Red Blood Count 5.73 M/mm3 (4.2-5.4); Red Cell Distribution Width 13.6 % (11.5-14.5); White Blood Count 8.1 K/mm3 (4.5-10.0)
[2024-05-13 19:25] LABS: Add Urine Microscopic? YES; Appearance Urine Turbid (Clear); Bacteria Urine 1+ /hpf; Bilirubin Urine Negative (Negative); Blood Urine Negative (Negative); Color Urine Dark Yellow (Yellow); Glucose Urine UA Negative (Negative); Ketones Urine 1+ mg/dL (Negative); Leukocyte Esterase Ur Negative LEU/UL (Negative); Nitrate Urine Negative (Negative); Non Pathogenic Casts 0-2; Protein Urine Trace mg/dL (Negative); RBC Urine 0-2 /hpf (0-2); Specific Grav Ur 1.019 (1.001-1.035); Squamous Epithelial Cell Urine Few /hpf (Few); pH Urine 6.5 (5.0-9.0)
--- NOTE | 2024-05-13 19:25 | PC.NURSE ---
Assumed care of pt after receiving report from GILBERT Guerin @ [phone]
[2024-05-13 19:26] VITALS: BP 155/74; PULSE 51; RESP 17; O2SAT 100
[2024-05-13 19:30] LABS: Alanine Aminotransferase 32 U/L (6-35); Albumin Level 4.6 g/dL (3.5-5.1); Alkaline Phosphatase 80 U/L (38-126); Anion Gap 10 mmol/L (4-12); Aspartate Amino Transferase 38 U/L (14-36); Bilirubin,Total 0.5 mg/dL (0.2-1.3); Blood Urea Nitrogen 14 mg/dL (7-17); Calcium 9.5 mg/dL (8.4-10.2); Carbon Dioxide 30 mmol/L (22-30); Chloride 101 mmol/L (98-107); Estimated CRCL calculation 47 ml/min; Estimated Glomerular Filt Rate > 60; Glucose 102 mg/dL (65-110); Lipase 66 U/L (23-300); Magnesium 2.2 mg/dL (1.6-2.3); Sodium 141 mmol/L (137-145)
--- OUTSIDE RECORDS SUMMARY | 2024-05-13 19:37 | XMS_ITS | Encounter Summary ---
Author Organization [facility] Healthcare Address [address] [place] [id number] Care Team Providers Care Operations Research Scientist Name Role Phone DALTON Olea Jr., Cesar Hahn Primary Care Provide r Reason for Visit * Reason Onset Date Comments Vomiting 05/13/2024 Encounter Details Date Type Department Care Team ([facility] st Contact Info) Description 05/13/2024 Nurse Triage [facility] Medical Group Primary Care [facility] [phone] Cesar Olea Jr., PA [address] [place] [phone] Social History Tobacco Use Types Packs/Day [...] on file Legal Sex Female 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 She agrees to call back with any questions or follow up. Routing to Cesar Olea Jr., PA clinical pool as MELITA. Reason for Disposition MODERATE vomiting (e.g., 3 - 5 times/day) and age > 60 years Protocols used: [id number]-Jqmze-AC * Telephone Encounter - Janki Rubio RN [...] on filedocumented in this encounter Care Teams Operations Research Scientist Relationship Specialty Start Date End Date Cesar Olea Jr., DALTON [address] [place] [id number] PCP - General 06/02/18 documented as of this encounter
--- OUTSIDE RECORDS SUMMARY | 2024-05-13 19:37 | XMS_ITS | Referral Summary ---
Author Organization [address] Address [address] [place] [phone] Care Team Providers Care Merchandising Specialist Name Role Phone DALTON Olea Jr., Cesar Hahn Primary Care Provide r Encounters Date Type Department Care Team Description 05/13/2024 Nurse Triage [facility] [address] [place] [address] [address] [place] [address] Cesar Olea Jr., PA 04/27/2024 10:45 AM PSYCHIATRIC ASSISTANT Office Visit [facility] [address] [place] [address] [address] [place] [address] Cesar Olea Jr., PA Hordeolum internum of left lower eyelid (Primary Dx); Primary insomnia; Current mild episode of major depressive disorder without prior episode; Gastroesophageal reflux disease without esophagitis; Acquired hypothyroidism 04/23/2024 9:27 AM PSYCHIATRIC ASSISTANT - 04/23/2024 11:59 PM PSYCHIATRIC ASSISTANT Hospital Encounter [facility] Medical Office Bldg [facility] [address] [place] [address] [address] [place], [place] [id number] Screening mammogram, encounter for Discharge Disposition: Discharge [...] vative Free, Intramuscular 12/14/2014,12/04/2013 Influenza, Unspecified 12/30/2020,12/08/2019 [employer] (J&J) SARS-CoV-2 Vaccination 05/09/2020 Pneumococcal Conjugate PCV [...] on file Legal Sex Female 7:42 PM PSYCHIATRIC ASSISTANT Gender Identity Not on file Sexual Orientation Not on file Last Filed Vital Signs Vital Sign Reading Time Taken Comments Blood Pressure 120/80 04/27/2024 10:33 AM PSYCHIATRIC ASSISTANT Pulse 53 04/27/2024 10:33 AM PSYCHIATRIC ASSISTANT Temperature 35.9 C (96.7 F) 04/27/2024 10:33 AM PSYCHIATRIC ASSISTANT Respiratory Rate 16 04/27/2024 10:33 AM PSYCHIATRIC ASSISTANT Oxygen Saturation 96% 04/27/2024 10:33 AM PSYCHIATRIC ASSISTANT Inhaled Oxygen Concentration - - Weight 63.5 kg (140 lb) 04/27/2024 10:33 AM PSYCHIATRIC ASSISTANT Height 157.5 cm (5' 2 ) 04/27/2024 10:33 AM PSYCHIATRIC ASSISTANT Body Mass Index 25.61 04/27/2024 10:33 AM PSYCHIATRIC ASSISTANT Plan of Treatment Not on file Procedures Procedure Name Priority Date/Time Associated Diagnosis Comments SCREENING MAMMOGRAM BILATERAL W COLE Schedule Routine, Read Routine (OP Routine) 04/23/2024 9:40 AM PSYCHIATRIC ASSISTANT Screening mammogram, encounter for HEPATITIS C ANTIBODY Routine 01/17/2024 12:06 PM PSYCHIATRIC ASSISTANT Medicare annual wellness visit, subsequent Encounter for [...] Mammogram Bilateral W Cole (04/23/2024 9:40 AM PSYCHIATRIC ASSISTANT) Anatomical Region Laterality Modality Breast Bilateral Mammography Impressions 04/23/2024 9:49 AM PSYCHIATRIC ASSISTANT BI-RADS ATLAS category (overall): 1 - Negative There is no mammographic evidence of malignancy. A 1 year screening mammogram is recommended. The patient has been or will be contacted. We recommend annual screening mammography for women at average risk of breast cancer beginning at age 40, based on guidelines of the [place] [employer] (ACR Practice Parameter for the Performance of Screening and Diagnostic Mammography) and [place] [employer]. For women with and elevated risk of breast cancer, please refer to the ACR Practice Parameter for specific screening recommendations. The patient will be entered into a reminder system with a target due date of 1 year for her next screening exam. Narrative 04/23/2024 9:49 AM PSYCHIATRIC ASSISTANT Screening Mammogram Bilateral W Cole: 04/23/24 The [...] Hepatitis C antibody Blood (01/17/2024 12:06 PM PSYCHIATRIC ASSISTANT) Hep C Ab Nonreactive Nonreactive Comment: Antibodies [...] on 2019. Blood 01/17/2024 12:0 6 PM PSYCHIATRIC ASSISTANT 01/17/2024 4:30 PM PSYCHIATRIC ASSISTANT us DALTON Ivy Jr. LAB MICROBIOLOGY - ApiaryNV ORDERABLES Final Result [facility] [address] [facility] Department [place] [address] * Stool DNA - Cologuard (08/20/2022 10:00 AM CDT) Stool DNA - Cologuard Negative Negative [facility] (CLIA #:[id number]) Comment: NEGATIVE TEST RESULT. A negative Cologuard [...] (Brian Aguilar al, N Engl J Med 2014;370(14):1781-5756) The normal value (reference range) for this assay is negative. COLOGUARD RE-SCREENING RECOMMENDATION: Periodic colorectal cancer screening is an important part of preventive healthcare for asymptomatic individuals at average risk for colorectal cancer. Following a negative Cologuard result, the [place] [employer] and U.S. Multi-Society Task Force screening guidelines recommend a Cologuard re-screening interval of 3 years. References: [place] [employer] Guideline for Colorectal Cancer Screening: https://www.cancer.org/cancer/vqjcp-uvbzlb-ltfjwc/yhwsuoobn-rerltwjlk-atdbvtl/ac s-rec ommendations.html.; Travis DK, Meri CR, Geno TurciosK, Colorectal Cancer Screening: Recommendations for Physicians and Patients from the U.S. Multi-Society Task Force on Colorectal Cancer Screening , Am J Gastroenterology 2017; 112:7359-5403. TEST DESCRIPTION: Composite algorithmic analysis of stool [...] (Brian Aguilar al, N Engl J Med 2014;370(14):5338-4042.) Cologuard may produce a false negative or false positive result (no colorectal cancer or precancerous polyp present at colonoscopy follow up). A negative Cologuard test result does not guarantee the absence of CRC or advanced adenoma (pre-cancer). The current Cologuard screening interval is every 3 years. ([place] [employer] and U.S. Multi-Society Task Force). Cologuard performance data in a 10,000 patient pivotal study using colonoscopy as the reference method can be accessed at the following location: www.Commun.it.com/results. Additional description of the Cologuard test process, warnings and precautions can be found at www.Applits.com. Stool 08/20/2022 10:0 0 AM CDT 08/21/2022 7:19 PM CDT us DALTON Ivy Jr. LAB BODY FLUIDS AND S TOOLS ORDERABLES Final Result [employer] (CLIA #:[id number]) [place] [address] * Dexa Axial Skeleton Bone Density 1 Or 2 Site (06/14/2022 10:18 AM CDT) Anatomical Region Laterality Modality Body N/A Mammography 06/15/2022 6:50 PM CDT Narrative 06/15/2022 6:59 PM CDT EXAM DESCRIPTION: DEXA AXIAL SKELETON BONE DENSITY 1 OR MORE SITES REASON FOR STUDY: 67 y/o year old F with given history of screening. Postmenopausal Electrical Development Engineer/Model: Lumicity A (S/N [id number]) CLINICAL INFORMATION: Current height: 62 inches Maximum [...] Temo Tsang M.D. MF: CHARIS Report ID: [id number] Reading Location: [address] Note Temo Tsang MD - 06/15/2022 EXAM DESCRIPTION: DEXA AXIAL SKELETON BONE DENSITY 1 OR MORE SITES REASON FOR STUDY: 67 y/o year old F with given history of screening. Postmenopausal Electrical Development Engineer/Model: Eayun Horizon A (S/N [id number]) CLINICAL INFORMATION: Current height: 62 inches Maximum [...] Temo Tsang M.D. MF: CHARIS Report ID: [id number] Reading Location: [place] [address] Cesar Olea Jr., DALTON IMG DXA PROCEDURES Fi nal Result * Colonoscopy (06/23/2008) Anatomical Region Laterality Modality Other Historical Provider ENDOSCOPY PROCEDURES Brissa l Result from Last 3 Months or Most Recently Relevant to Health Maintenance Insurance [employer] MEDICARE [employer] [facility] [employer] CHOICE MEDICARE PPO MEDICARE [facility] Address: [address] [address] [place] [address] [facility] Care Teams Merchandising Specialist Relationship Specialty Start [place] [address] [place] [address] PCP - General 06/02/18
--- OUTSIDE RECORDS SUMMARY | 2024-05-13 19:37 | XMS_ITS | Continuity of Care Document ---
Author Organization [facility] Address [address] [facility] [address] [place] [address] Phone Care Team Providers Care Process Technician Name Role Phone Harry Post MD Unavailable [...] Provider Providers Copied on Encounter [facility], [address] [place] [address], [place], [place], [id number], [place] tel:[phone] OPH CONSULT BRANDYN KRAMER f/u post-Bleph aroplasty BUL (chief complaint) Dermatochalasi s of left upper eyelid May- 5 Sincere Mcdonald. [address] [place] [address], [address], [place], [id number], [place]. tel:[phone] Referring Provider: [address] [place], [address]. tel:[phone] [facility], [address] [place] [address], [id number], tel:[phone] OPH CONSULT BRANDYN KRAMER Post-Op (chief complaint) Dermatochalasi s of left upper eyelid 4 Sincere Harry. [address] [place] [address], [place] [address], [place], [place], [id number], [place]. tel:[phone] Referring Provider: [address] [place], [address]. tel:[phone] [facility], [address] [place] [address], [id number], tel:[phone] [place] No Information 4 Sincere Alvas. [address] [place] [address], [place] [address], [place], [place], [id number], [place]. tel:[phone] Referring Provider: [address] [place], [address]. tel:[phone] [facility], [address] [place] [address], [id number], tel:[phone] OPH CONSULT BRANDYN KRAMER No Information 4 Manning Harry. [address] [place] [address], [place] [address], [place], [place], [id number], [place]. tel:[phone] OFFICE/OUTPA TIENT VISIT, [facility], [address] [place] [address], [id number], [place] tel:[phone] OPH CONSULT BRANDYN KRAMER drooping lids (chief complaint) Dermatochalasi s of left upper eyelidDermatoc halasis of right upper eyelidMechanic al ptosis of bilateral eyelids Dec-3 4 Sincere Mcdonald. [address] [facility], [address], [place], [place], [id number], [place]. tel:[phone] Referring Provider: Virgie Nolan, [address] [place], [address]. tel:[phone] [facility], [address], [place], [place], [id number], [place] tel:[phone] OPH CONSULT BRANDYN KRAMER No Information 4 Sincere Mcdonald. [address] [facility], [address], [place], [place], [id number], [place]. tel:[phone] Family History Family Member Type Diagnosis Age At Onset Problem No family history of Macular degeneration Problem No family history of [place] a Payers Payer name Insurance type Covered republican ID Authorizmaury scott(s) [facility] [employer] [id number] HUMANA PPO [id number] Social History Type Description Quantity Date Captured [...] not have a heart stent/defibrillatorPCP-Dr. Cesar Griggs, [facility] Instructions Date Instruction Additional Karan rubio Impression/Plan Related to [place] tochalasis of left upper eyelid Impression/Plan Related to [place] tochalasis of left upper eyelid Impression/Plan Related to [place] tochalasis of left upper eyelid Impression/Plan Related to [place] tochalasis of right upper eyelid Impression/Plan Related to Mecha nical ptosis of bilateral eyelids Assessments Type Assessment Date assessment Dermatochalasis of [...]
--- OUTSIDE RECORDS SUMMARY | 2024-05-13 19:37 | XMS_ITS | Continuity of Care Document ---
Author Name [facility] Organization [facility] Care Team Providers Care Oiler And Greaser Name Role Phone DOD-MI Unavailable Unavailable Problems Combined list of problems [...] both with PCM Dr Avila and with Laser Systems Engineer. Desires continuance of OCPs because of hot [...] ss.Obtai n advice for OTCs. Active 06/24/2024 [id number] 4 2023 90 [employer] [place] ([facility] cetirizine 10 mg [...] CODEINE Drug allergy (disorder) Unknown active [address] [place] [address] Group [place] ([facility]) codeine Propensity to adverse reactions to drug Unknown Active 4 Unknown Organizat ion erythromycin Propensity to adverse reactions to drug Unknown Active 4 Unknown Organizat ion ERYTHROMYCIN (ERYTHROMYCIN BASE) Drug allergy (disorder) Unknown active [address] [place] [address] [place] ([facility] OTHER Drug allergy (disorder) Unknown active 4 [facility]) SEPTRA (SULFAMETHOXA ZOLE/TRIMETHO PRIM) Drug allergy (disorder) Unknown active [address] [place] [address] [facility] [employer] [facility] sulfa drugs Propensity to adverse reactions to drug Unknown Active 4 Unknown Organizat ion SULFA-DRUGS Drug allergy (disorder) Unknown active [address] [place] [address] [facility]) sulfamethoxaz ole-trimethop rim Propensity to adverse reactions to drug Unknown Active 4 ITCHING OVER ENTIRE BODY Unknown Organizat ion Immunizations Combined list of available immunizations from the Department of Defense and Veterans Affairs facilities. Immunization Series Date Given Administered By Site Reaction Lot Number CVX Code Drug Quill Worker Status Comments Source COVID-19, mRNA, LNP-S, PF, 30 mcg/0.3 mL dose, hipolito-sucrose 2021 [facility] [place] ([facility]) Not Given COVID-19, mRNA, LNP-S, PF, 30 mcg/0.3 mL dose, hipolito-sucr ose DoD influenza, injectable, quadrivalent- pf 2020 zSarah t Arm [id number] [facility] complet ed influenza , injectabl e, [...] free 1 2015 Unknown, Provider [id number] [facility] complet ed Influenza , injectabl e, quadrival ent, preservat cal free DoD zoster vaccine live 2015 zzRig ht Arm [id number] Zoe [employer] complet ed zoster vaccine live 03/18/15 [...] zoster vaccine, live 1 2015 Unknown, Provider [id number] Merck (MSD) complet ed zoster vaccine, live DoD influenza, seasonal, injectable-pf 2014 zzRig ht Arm [id number] CSL Behring complet ed influenza , seasonal, injectabl e-pf 12/14/14 Given Ambulat ory Pharmac y Influenza, seasonal, injectable, preservative free 1 2014 Unknown, Provider [id number] 140 [employer] (CSL) complet ed Influenza , seasonal, injectabl e, preservat cal free DoD influenza, seasonal, injectable-pf 2013 zzLef t Arm [id number] 140 Novartis [employer] ls complet ed influenza , seasonal, injectabl e-pf 12/04/13 Given Ambulat ory Pharmac y Influenza, seasonal, injectable, preservative free 1 2013 Unknown, Provider [id number] 140 Novartis Pharmaceut[employer] l Eleazar. (NOV) complet [...] Pharmac y tetanus-dipht h toxoids (Td) adult/adol [id number] [employer] complet ed tetanus-d iphth toxoids (Td) adult/ado l 05/04/98 Given Ambulat ory Pharmac y tetanus and diphtheria toxoids, adsorbed, preservative free, for adult use (2 Lf of tetanus toxoid and 2 Lf of diphtheria toxoid) 1 1998 Unknown, Provider [id number] 09 [employer] (CON) complet ed tetanus and diphtheri a toxoids, adsorbed, preservat cal free, for adult use (2 Lf of tetanus toxoid and 2 Lf of diphtheri a toxoid) DoD hepatitis B vaccine, adult dosage 1 1998 Unknown, Provider [id number] 43 [employer] (SKB) complet ed hepatitis B vaccine, adult [...] ADM Date DC Date Status Disposition Source [facility] [place] ([facility]Nba rology) OUTPATIENT [id number] LOLY Caal 11/22 Released w/o Limitations [employer] [place] [facility]N eurolog y) [facility] [place] [facility]Fam nixon Practice Non-GME FHI2) OUTPATIENT [id number] Annual Pap YUNI CLOUD 08/07 Released w/o Limitations [facility] Medical [facility] [place] [facility]F amily Practic e Non-GME FHI2) [facility] [place] [facility]Laser Systems Engineer ecology) OUTPATIENT [id number] changes in cervix and polyp ELGIN GROSSMAN 09/05 Released w/o Limitations [address] [place], [place] [address]B [facility]G ynecolo gy) [address] [place], [place] [address]B [facility] Non-GME FHI2) TELE CONSULT [id number] Med Refill YUNI COCHRAN 12/[address] [place] [address])(F amily Practic e Non-GME FHI2) [address] [place] [address])([facility] nixon Practice Non-GME FHI2) OUTPATIENT [id number] chest congest /cough/ thinks low grade temp ROGER AVILA 02/14 Released w/o Limitations [address] [place], [place] [address]B [facility]F amily Practic e Non-GME FHI2) [address] [place], [place] [address]B [facility] Non-GME FHI2) OUTPATIENT [id number] chest jamilah with bad cough and rt side chest pain YUNI CLOUD 03/07 Released w/o Limitations [address] [place] [address])(F amily Practic e Non-GME FHI2) [address] [place], [place] [address]B [facility] Non-GME FHI2) TELE CONSULT [id number] med refill- NESS Alexis 06/[address] [place] [address])(F amily Practic e Non-GME FHI2) [address] [place] [address])([facility] Practice Non-GME FHI2) OUTPATIENT [id number] questio jean carlos about b/p,thy roid YUNI CLOUD 07/10 Released w/o Limitations [address] [place] [address])(F amily Practic e Non-GME FHI2) [address] [place], [place] [address]B [facility] Non-GME FHI2) OUTPATIENT [id number] f/u ER-HTN KAMARI MAYBERRY 08/09 Released w/o Limitations [address] [place], [place] [address]B [facility]F amily Practic e Non-GME FHI2) [address] [place], [place] [address]B [facility] Non-GME FHI2) TELE CONSULT [id number] PCM: Esperanza Contact #: BARRON SHAHZAD A 08/[address] [place] [address] Group [employer] [facility]F amily Practic e Non-GME FHI2) [address] [place] [address] [employer] [facility] Practice Non-GME FHI2) TELE CONSULT [id number] JESSICA Richard 10/[address] [place] [address] Group [employer] [facility]F amily Practic e Non-GME FHI2) [address] [place] [address] [employer] [facility] Practice Non-GME FHI2) OUTPATIENT [id number] annual pap ROGER AVILA 11/14 Released w/o Limitations [address] [place] [address] Group [employer] [facility]F amily Practic e Non-GME FHI2) [address] [place] [address] [place] [facility]Laser Systems Engineer ecology) OUTPATIENT [id number] CHARLOTTE OSPINA 11/26 Released w/o Limitations [address] [place] [address] Group [place] B [facility]G ynecolo gy) [address] [place] [address] [place] B [facility]Laser Systems Engineer ecology) OUTPATIENT [id number] po OZZIE AMOR 11/29 Released w/o Limitations [address] [place] [address] [employer] [facility]G ynecolo gy) [address] [place] [address] [employer] [facility]Laser Systems Engineer ecology) TELE CONSULT [id number] Colpo Results JAXON LEVY L 12/[address] [place] [address] [place] B [facility]G ynecolo gy) [address] [place] [address] [employer] ([facility] [facility] Non-GME FHI2) OUTPATIENT [id number] possibl e scaROGER Iyer 12/11 Released w/o Limitations [address] [place] [address] [employer] [facility]F amily Practic e Non-GME FHI2) [address] [place] [address] [employer] [facility] Practice Non-GME FHI2) TELE CONSULT [id number] B/C KEITH Dela Cruz 12/[address] [place] [address] [employer] [facility]F amily Practic e Non-GME FHI2) [address] [place] [address] [facility])(Fam nixon Practice Non-GME FHI2) OUTPATIENT [id number] congest ed cough LEILA TOLLIVER 02/12 Released w/o Limitations [facility])(F amily Practic e Non-GME FHI2) [facility])(Laser Systems Engineer ecology) OUTPATIENT [id number] HOT FLASHES OZZIE AMOR 05/03 Released w/o Limitations [facility])(G ynecolo gy) Procedures Combined list of: 1) Procedures from Department of Veterans Affairs facilities going back up to thelast 18 months, not all VA non-surgical procedures are included; 2) All procedures from the Department of Defense facilities. Procedure Procedure Type Code Date Perfomer Comments Sour e PSYCHIATRIC EVALUATION OF HOSPITAL RECORDS, OTHER PSYCHIATRIC [...] 015 DoD PSYCHOTHERAPY, 45 MINUTES WITH PATIENT 015 DoD PSYCHOTHERAPY, 60 [...] OXIMETRY FOR OXYGEN SATURATION; SINGLE DETERMINATION 002 [facility] NONINVASIVE EAR OR PULSE OXIMETRY FOR OXYGEN SATURATION; SINGLE DETERMINATION 002 [facility] INTUBATION OF NASOLACRIMAL DUCT 997 [facility] DIAGNOSTIC ULTRASOUND OF ABDOMEN AND RETROPERITONEUM 992 [facility] COMPUTERIZED AXIAL TOMOGRAPHY OF ABDOMEN 992 [facility] BIOPSY OF SKIN AND SUBCUTANEOUS TISSUE 992 [facility] OTHER ENDOSCOPY OF SMALL INTESTINE 991 [facility] Psychiatric Diagnostic Evaluation Review of Records and Reports Psychiatric Diagnostic Evaluation Review of Records and Reports [id number] EVA CORRALES [facility] Psychometric Emotional / Behavioral A e ment Psychometric Emotional / Behavioral Assessment 11586 018 LIU, DIMITRI DoD Psychotherapy Individual Approximately 60 Minutes Psychotherapy Individual Approximately 60 Minutes 47143 018 ILU, DIMITRIIPexpert Psychometric Emotional / Behavioral A e ment Psychometric Emotional / Behavioral Assessment 87787 018 LIU, DIMITRIIPexpert Psychotherapy Individual Approximately 60 Minutes Psychotherapy Individual Approximately 60 Minutes 35225 018 LIU, DIMITRIIPexpert Psychometric Emotional / Behavioral A e ment Psychometric Emotional / Behavioral Assessment 80071 018 LIU, [place] Psychotherapy Individual Approximately 60 Minutes Psychotherapy Individual Approximately 60 Minutes 31885 018 LIU, DIMITRIIPexpert Psychometric Emotional / Behavioral A e ment Psychometric Emotional / Behavioral Assessment 98576 018 LIU, [place] Psychotherapy Individual Approximately 45 Minutes Psychotherapy Individual Approximately 45 Minutes 30226 018 LIU, DIMITRIIPexpert Psychometric Emotional / Behavioral A e ment Psychometric Emotional / Behavioral Assessment 77548 018 LIU, [place] Psychotherapy Individual Approximately 45 Minutes Psychotherapy Individual Approximately 45 Minutes 82729 018 LIU, [place] Psychometric Emotional / Behavioral A e ment Psychometric Emotional / Behavioral Assessment 60467 018 LIU, [place] Psychotherapy Individual Approximately 45 Minutes Psychotherapy Individual Approximately 45 Minutes 26768 018 LIU, DIMITRIIPexpert Psychometric Emotional / Behavioral A e ment Psychometric Emotional / Behavioral Assessment 51476 017 LIU, [place] Psychotherapy Individual Approximately 60 Minutes Psychotherapy Individual Approximately 60 Minutes 85949 017 LIU, [place] Psychometric Emotional / Behavioral A e ment Psychometric Emotional / Behavioral Assessment 07871 017 LIU, DIMITRI DoD Psychotherapy Individual Approximately 60 Minutes Psychotherapy Individual Approximately 60 Minutes 36037 017 LIU, DIMITRI DoD Psychometric Emotional / Behavioral A e ment Psychometric Emotional / Behavioral Assessment 99024 017 LIU, DIMITRI DoD Psychotherapy Individual Approximately 60 Minutes Psychotherapy Individual Approximately 60 Minutes 99378 017 LIU, DIMITRI DoD Psychometric Emotional / Behavioral A e ment Psychometric Emotional / Behavioral Assessment 38075 017 LIU, DIMITRI DoD Psychotherapy Individual Approximately 45 Minutes Psychotherapy Individual Approximately 45 Minutes 98728 017 LIU, DIMITRI DoD Psychometric Emotional / Behavioral A e ment Psychometric Emotional / Behavioral Assessment 30565 017 LIU, DIMITRI DoD Psychotherapy Individual Approximately 60 Minutes Psychotherapy Individual Approximately 60 Minutes 75204 017 LIU, DIMITRI DoD Psychometric Emotional / Behavioral A e ment Psychometric Emotional / Behavioral Assessment 77414 017 LIU, DIMITRI DoD Psychotherapy Individual Approximately 60 Minutes Psychotherapy Individual Approximately 60 Minutes 34560 017 LIU, DIMITRI DoD Psychometric Emotional / Behavioral A e ment Psychometric Emotional / Behavioral Assessment 73497 017 LIU, DIMITRI DoD Psychotherapy Individual Approximately 60 Minutes Psychotherapy Individual Approximately 60 Minutes 74919 017 LIU, DIMITRI DoD Psychometric Emotional / Behavioral A e ment Psychometric Emotional / Behavioral Assessment 15741 017 LIU, DIMITRI DoD Psychotherapy Individual Approximately 60 Minutes Psychotherapy Individual Approximately 60 Minutes 88303 017 LIU, DIMITRI DoD Psychometric Emotional / Behavioral A e ment Psychometric Emotional / Behavioral Assessment 84182 016 LIU, DIMITRI DoD Psychotherapy Individual Approximately 45 Minutes 016 LIU, DIMITRI DoD Psychometric Emotional / Behavioral A e ment Psychometric Emotional / Behavioral Assessment 55637 016 LIU, DIMITRI DoD Psychotherapy Individual Approximately [...] Individual Approximately 30 Minutes 014 GISELLE MADERA [facility] Psychiatric Diagnostic Evaluation Initial Psychiatric Diagnostic Evaluation Initial [id number] 014 GISELLE MADERA [facility] Colposcopy With Biopsy Colposcopy With Biopsy 99305 006 JAXON ESPINOZA [facility] Screening papanicolaou smear; obtaining, preparing and conveyance of cervical or vaginal smear to laboratory 006 ROGER AVILA [facility] Colposcopy With Biopsy Colposcopy With Biopsy 38007 005 ELGIN GROSSMAN [facility] Surgical Pathology Level IV Cervical/Endometrial Polyp 005 ELGIN GROSSMAN [facility] Screening papanicolaou smear; obtaining, preparing and conveyance of cervical or vaginal smear to laboratory 005 JOAO HERNANDEZ [facility] No data available for this section Ambulatory Pharmacy Social History Combined list of available smoking, tobacco, and other social history from Department of Defense and Veterans Affairs facilities. Social History Type Response Date Comment [facility] e This section is an empty social [...] Plan No data available for this section 05/14/2024 Ambulatory Pharmacy Functional Status Combined list of recent functional and cognitive assessments recorded at Department of Defense and Veterans Affairs (VA).VA Functional Larue Measurement (FIM) Scale: 1 = Total Assistance (Subject = 0% +), 2 = Maximal Assistance (Subject = 25% +), 3 = Moderate Assistance (Subject = 50% +), 4 = Minimal Assistance (Subject = 75% +), 5 = Supervision, 6 = Modified Larue (Device), 7 = Complete Larue (Timely, Safely). Assessment Date/Time Source Assessment Type Assessment Skill Assessment Score Assessment Details No data available for this section
--- OUTSIDE RECORDS SUMMARY | 2024-05-13 19:37 | XMS_ITS | Clinical Summary ---
Author Organization [address] Address [address] [place] [id number] Care Team Providers Care High Frequency Mill Operator Name Role Phone DALTON Olea Jr., Cesar [...] Department Care Team Description 05/13/2024 Nurse Triage [facility] [address] [place] [phone] Cesar Olea Jr., PA 04/27/2024 10:45 AM BUILDING WRECKER Office Visit [facility] [address] [place] [phone] Cesar Olea Jr., PA Hordeolum internum of left lower eyelid (Primary Dx); Primary insomnia; Current mild episode of major depressive disorder without prior episode; Gastroesophageal reflux disease without esophagitis; Acquired hypothyroidism 04/23/2024 9:27 AM BUILDING WRECKER - 04/23/2024 11:59 PM BUILDING WRECKER Hospital Encounter [facility] [address] [place] [id number] Screening mammogram, encounter for Discharge Disposition: Discharge [...] vative Free, Intramuscular 12/14/2014,12/04/2013 Influenza, Unspecified 12/30/2020,12/08/2019 Crzyfish (J&J) SARS-CoV-2 Vaccination 05/09/2020 Pneumococcal Conjugate PCV [...] on file Legal Sex Female 7:42 PM BUILDING WRECKER Gender Identity Not on file Sexual Orientation Not on file Obstetrics History Para Term AB IAB SAB Ectopic Multiple Livin g Live Births 2 Date Outcome GA Total Labor Labor/2nd/3rd Weight Sex Type Anes PTL Natasha A1 A5 Name Clin Last Filed Vital Signs Vital Sign Reading Time Taken Comments Blood Pressure 120/80 04/27/2024 10:33 AM BUILDING WRECKER Pulse 53 04/27/2024 10:33 AM BUILDING WRECKER Temperature 35.9 C (96.7 F) 04/27/2024 10:33 AM BUILDING WRECKER Respiratory Rate 16 04/27/2024 10:33 AM BUILDING WRECKER Oxygen Saturation 96% 04/27/2024 10:33 AM BUILDING WRECKER Inhaled Oxygen Concentration - - Weight 63.5 kg (140 lb) 04/27/2024 10:33 AM BUILDING WRECKER Height 157.5 cm (5' 2 ) 04/27/2024 10:33 AM BUILDING WRECKER Body Mass Index 25.61 04/27/2024 10:33 AM BUILDING WRECKER Plan of Treatment Health Maintenance Due Date [...] Read Routine (OP Routine) 04/23/2024 9:40 AM BUILDING WRECKER Screening mammogram, encounter for HEPATITIS C ANTIBODY Routine 01/17/2024 12:06 PM BUILDING WRECKER Medicare annual wellness visit, subsequent Encounter for [...] Mammogram Bilateral W Cole (04/23/2024 9:40 AM BUILDING WRECKER) Anatomical Region Laterality Modality Breast Bilateral Mammography Impressions 04/23/2024 9:49 AM BUILDING WRECKER BI-RADS ATLAS category (overall): 1 - Negative There is no mammographic evidence of malignancy. A 1 year screening mammogram is recommended. The patient has been or will be contacted. We recommend annual screening mammography for women at average risk of breast cancer beginning at age 40, based on guidelines of the [place] (ACR Practice Parameter for the Performance of Screening and Diagnostic Mammography) and [place] [employer]. For women with and elevated risk of breast cancer, please refer to the ACR Practice Parameter for specific screening recommendations. The patient will be entered into a reminder system with a target due date of 1 year for her next screening exam. Narrative 04/23/2024 9:49 AM BUILDING WRECKER Screening Mammogram Bilateral W Cole: 04/23/24 The [...] Hepatitis C antibody Blood (01/17/2024 12:06 PM BUILDING WRECKER) Hep C Ab Nonreactive Nonreactive Comment: Antibodies [...] on 2019. Blood 01/17/2024 12:0 6 PM BUILDING WRECKER 01/17/2024 4:30 PM BUILDING WRECKER us DALTON Ivy Jr. LAB MICROBIOLOGY - [employer] ORDERABLES Final Result [facility] [address] [facility] Department [place] [address] * Stool DNA - Cologuard (08/20/2022 10:00 AM CDT) Stool DNA - Cologuard Negative Negative [employer] (CLIA #:[id number]) Comment: NEGATIVE TEST RESULT. A negative Cologuard [...] (Brian Aguilar al, N Engl J Med 2014;370(14):8759-1089) The normal value (reference range) for this assay is negative. COLOGUARD RE-SCREENING RECOMMENDATION: Periodic colorectal cancer screening is an important part of preventive healthcare for asymptomatic individuals at average risk for colorectal cancer. Following a negative Cologuard result, the [place] [employer] and U.S. Multi-Society Task Force screening guidelines recommend a Cologuard re-screening interval of 3 years. References: [place] [employer] Guideline for Colorectal Cancer Screening: https://www.cancer.org/cancer/pblbk-iaxgjb-vciswb/hnevtodcr-dftkypjdr-cefgqrp/ac s-rec ommendations.html.; Travis DK, Meri NARVAEZ, Geno ELLISON, Colorectal Cancer Screening: Recommendations for Physicians and Patients from the U.S. Multi-Society Task Force on Colorectal Cancer Screening , Am J Gastroenterology 2017; 112:5544-2666. TEST DESCRIPTION: Composite algorithmic analysis of stool [...] (Brian Aguilar al, N Engl J Med 2014;370(14):3172-4996.) Cologuard may produce a false negative or false positive result (no colorectal cancer or precancerous polyp present at colonoscopy follow up). A negative Cologuard test result does not guarantee the absence of CRC or advanced adenoma (pre-cancer). The current Cologuard screening interval is every 3 years. ([place] [employer] Society and U.S. Multi-Society Task Force). [...] FLUIDS AND S TOOLS ORDERABLES Final Result [employer] (CLIA #:[id number]) [place] [address] * Dexa Axial Skeleton Bone Density 1 Or 2 Site (06/14/2022 10:18 AM CDT) Anatomical Region Laterality Modality Body N/A Mammography 06/15/2022 6:50 PM CDT Narrative 06/15/2022 6:59 PM CDT EXAM DESCRIPTION: DEXA AXIAL SKELETON BONE DENSITY 1 OR MORE SITES REASON FOR STUDY: 67 y/o year old F with given history of screening. 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 MF: CHARIS Report ID: [id number] Reading Location: [place] [address] Procedure Note Temo Tsang MD - 06/15/2022 EXAM DESCRIPTION: DEXA AXIAL SKELETON BONE DENSITY 1 OR MORE SITES REASON FOR STUDY: 67 y/o year old F with given history of screening. Postmenopausal Waiter/Waitress Informal/Model: [employer] A (S/N [id number]) CLINICAL INFORMATION: Current height: 62 inches Maximum [...] Temo Tsang M.D. MF: CHARIS Report ID: [id number] Reading Location: [place] [address] Cesar Olea Jr., DALTON IMG DXA PROCEDURES Fi nal Result * Colonoscopy (06/23/2008) Anatomical Region Laterality Modality Other Historical Provider ENDOSCOPY PROCEDURES Brissa l Result from Last 3 Months or Most Recently Relevant to Health Maintenance Insurance [employer] MEDICARE [facility] [employer] CHOICE MEDICARE PPO MEDICARE [employer] FOR LIFE Care Teams High Frequency Mill Operator Relationship Specialty Start Date End Date Cesar Olea Jr., PA [address] [place] [id number] PCP - General 06/02/18
[2024-05-13 19:39] LABS: Lactic Acid Reflex 0.9 mmol/L (0.7-2.0)
[2024-05-13 19:56] LABS: Influenza A QL RT-PCR Negative (Negative); Influenza B QL RT-PCR Negative (Negative); RSV RNA, RT-PCR Negative (Negative); SARS-CoV-2 RNA PCR Negative (Negative)
[2024-05-13 20:50] VITALS: BP 157/89; PULSE 54; RESP 19; O2SAT 99
== END 2024-05-13 20:56 | disposition home or self-care (01) ==
PROVIDERS: Physician Assistant; Emergency Provider Emergency Medicine; PCP Physician Assistant
DX: K52.9 Noninfective gastroenteritis and colitis, unspecified (principal); E86.0 Dehydration; Z20.822 Contact with and (suspected) exposure to COVID-19; R91.1 Solitary pulmonary nodule; R82.998 Other abnormal findings in urine
CPT/HCPCS: 36415; 74177; 80053; 81001; 83605; 83690; 83735; 85025; 87086; 87637; 96361; 96374; 99284; J2405; J7030; Q9967